=== PATIENT | male | born 1935 | race Caucasian/White ===

== ENCOUNTER → 2023-06-30 13:43 | Outpatient (REF) | payer MEDICARE, SELFPAY | LOC: RAD 13:43 | PROVIDERS: ATTENDING PHYSICIAN Internal Medicine Hematology & Oncology; FAMILY PHYSICIAN Family Medicine | DX: I82.409 Acute embolism and thrombosis of unspecified deep veins of unspecified lower extremity (principal); R22.41 Localized swelling, mass and lump, right lower limb | CPT/HCPCS: 93970 ==

== ENCOUNTER 2023-07-10 08:07 | Inpatient (IN) | payer MEDICARE, SELFPAY ==
[2023-07-08] VITALS (8 sets, daily range): BP systolic 114–187; BP diastolic 59–88; BMI 26.6; BMI 25.9
[2023-07-08 17:28] LABS: % Basophils 0.9 % (0-2); % Eosinophils 16.8 % (0-6); % Immature Granulocytes 0.7 % (0-0.5); % Lymphocytes 11.8 % (20.5-51.1); % Monocytes 13.1 % (1.7-9.3); % Neutrophils 56.7 % (42.2-75.2); Absolute Basophils 0.1 10^3/uL (0-0.2); Absolute Eosinophils 1.5 10^3/uL (0-0.7); Absolute Immature Granulocytes 0.1 10^3/uL (0-0.05); Absolute Monocytes 1.1 10^3/uL (0.1-0.6); Hematocrit 24.6 % (39.0-52.0); Hemoglobin 8.3 g/dL (13.0-18.0); Mean Corp Hgb Conc. 33.7 g/dL (33.0-37.0); Mean Corpuscular Hgb 30.2 pg (27.0-31.0); Mean Corpuscular Volume 89.5 fL (80.0-94.0); Mean Platelet Volume 9.6 fL (7.4-10.4); Nucleated Red Blood Cells % 0 % (-); Platelet Count 412 10^3/uL (130-400); Red Blood Cell Count 2.75 10^6/uL (4.70-6.10); Red Cell Dist. Width 19.4 % (11.5-14.5); White Blood Cell Count 8.7 10^3/uL (4.8-10.8)
[2023-07-08 17:42] LABS: ALT (SGPT) < 10 U/L (0-50); AST (SGOT) 18 U/L (17-59); Alkaline Phosphatase 151 U/L (38-126); Blood Urea Nitrogen 21 mg/dl (9-20); Calcium 8.7 mg/dl (8.4-10.2); Carbon Dioxide 20 mmol/L (22-30); Chloride 107 mmol/L (98-107); Glucose 109 mg/dl (70-99); Potassium 4.4 mmol/L (3.5-5.1); Sodium 135 mmol/L (135-145); Total Bilirubin 0.5 mg/dl (0.2-1.3); Total Protein 5.3 g/dl (6.3-8.2); eGFR 48.95
[2023-07-08 17:45] LABS: Erythrocyte Sed Rate 27 mm/hour (0-20)
[2023-07-08 17:52] LABS: NT-proBNP 5330 pg/ml
--- NOTE | 2023-07-08 18:31 | ED.GENMED ---
History of Present Illness
General
Chief Complaint: Swelling
Source: patient
Time Seen by Provider: 07/08/23 18:21
Travel History
Have you had any contact with someone who has COVID-19?: No
Comment: n/a
Do you have any symptoms of coronavirus? Fever > 100 degrees, chills, cough, shortness of breath, sore throat, loss of taste or smell, muscle aches, or headache?: No
Symptoms:: n/a
History of Present Illness
History of Present Illness:
87-year-old male with past medical history of atrial fibrillation, CAD, hypertension, chronic kidney disease, recent diagnosis of a GIST tumor currently started chemotherapy 6 weeks ago, this was stopped 1 week ago due to lower extremity edema,
presenting to the [facility] stating the swelling has only gotten worse and is gotten progressively more short of breath with intermittent orthopnea. Patient notes a mild cough and states that he normally has chronic mucus/chest congestion which does
not seem much worse than normal. Patient denies any fevers, chills, rigors or any other concerns. Patient notes that he had a ultrasound done of the bilateral lower extremities as an outpatient last week which was negative for DVT. He currently
does not take any diuretics
Past History
Past History
ED Past Medical History: Arrthythmia, CAD and HTN
ED Past Surgical History: Cardiac
Social History
Tobacco: Non-smoker
Alcohol: Occasional
Drug: None
Personal:
Living: with family
Employment: Retired
Family History
Family History: Other
Review of Systems
Review of Systems
All Other Systems: ROS reviewed and negative except as documented in HPI and ROS
Phy Exam
Physical Exam
Physical Exam:
GENERAL: Alert , in no apparent distress
EYE: conjunctiva clear
NECK: Supple, no significant adenopathy.
ENT: o/p clr, mmm.
CARDIAC: Regular rate and rhythm, systolic murmur at the left sternal border
LUNGS: Clear breath sounds bilaterally, no acute respiratory distress, no wheezes/rales/rhonchi
NEUROLOGICAL: Alert and oriented
SKIN: Warm and dry, skin intact.
MUSCULOSKELETAL: Bilateral lower extremity edema with the right leg being worse than the left. 2+ pitting, easily palpable pedal and tibial pulses bilateral
PSYCH: Normal and appropriate interaction.
Scores
Heart Failure Risk
Heart Failure Risk Score: Yes
History of Stroke or TIA: No
History of intubation for respiratory distress: No
Heart rate on ED arrival >/= 110: No
SaO2 <90% on arrival on room air: No
HR >/=110 during 3min walk test (or too ill to perform test): Yes
ECG has acute ischemic changes: No
Urea >/=12mmol/L (BUN 33.6mg/dL): No
Serum CO2>/=35mmol/L: No
Troponin I or T elevated to UT Level (0.4mg/dL): No
NT-proBNP >/=5,000ng/L (5,000pg/ml): Yes
HF Risk Score: 3
Admission Status: HIGH RISK 15.9% Consider SNF treatment or admission to hospital
Heart Score for Chest Pain Patients
STEMI patient?: Not applicable
Withdrawal Assessment of Alcohol
Withdrawal Assessment Completed?: Not applicable
Course
Orders/Labs/Results
Orders:
Orders
07/08/23 17:16
Complete Blood Count/With Diff Urgent
Comprehensive Metabolic Panel Urgent
ESR [Erythrocyte Sed Rate] Urgent
NT-proBNP Urgent
07/08/23 18:29
Furosemide [Lasix] 40 mg IV ONCE ONE
07/08/23 18:30
CR Chest - 2 Views Urgent
Comment:
Reason For Exam: SOB, edema
07/08/23 19:14
CR Elbow - Left Min 2 View Routine
Comment:
Reason For Exam: fall with elbow pain
Ribs, Left 3 View W/PA Chest CR [CR Ribs-left 3 Vw W/pa Chest] Routine
Comment:
Reason For Exam: recent fall with L ribcage pain
07/08/23 19:15
Admit/Transfer Patient As Directed
Co-Sign Provider:
Level of Care: Observation services
Assign to:: Telemetry
Physician / Group: hospitalist
Diagnosis: CHF exacerbation
Reason for Telemetry: Subacute Heart Failure
Date to Stop Telemetry: 07/10/23
Time to Stop Telemetry: 11:00
07/08/23 19:18
Code Status As Directed
Resuscitation Status: Full Code
07/10/23 11:00
DC Protocol for Telemetry ONCE
Abnormal Lab Results
07/08/23
17:16
RBC 2.75 L 10^6/uL
(4.70-6.10)
Hgb 8.3 L g/dL
(13.0-18.0)
Hct 24.6 L %
(39.0-52.0)
RDW 19.4 H %
(11.5-14.5)
Plt Count 412 H 10^3/uL
(130-400)
Abs Immat Gran (auto) 0.1 H 10^3/uL
(0-0.05)
Absolute Lymphs (auto) 1.0 L 10^3/uL
(1.2-3.4)
Absolute Monos (auto) 1.1 H 10^3/uL
(0.1-0.6)
Absolute Eos (auto) 1.5 H 10^3/uL
(0-0.7)
Immature Gran % 0.7 H %
(0-0.5)
Lymphocytes % 11.8 L %
(20.5-51.1)
Monocytes % 13.1 H %
(1.7-9.3)
Eosinophils % 16.8 H %
(0-6)
ESR 27 H mm/hour
(0-20)
Carbon Dioxide 20 L mmol/L
(22-30)
BUN 21 H mg/dl
(9-20)
Creatinine 1.4 H mg/dL
(0.7-1.3)
Glucose 109 H mg/dl
(70-99)
Alkaline Phosphatase 151 H U/L
(38-126)
Total Protein 5.3 L g/dl
(6.3-8.2)
Albumin 3.0 L g/dl
(3.5-5.0)
07/08/23 17:16
07/08/23 17:16
Vital Signs
Initial and Last Documented VS:
Initial Vital Signs
Temp Pulse Resp BP Pulse Ox
98.2 F 55 20 187/88 95
07/08/23 16:36 07/08/23 16:36 07/08/23 16:36 07/08/23 16:36 07/08/23 16:36
Last Documented Vital Signs
Temp Pulse Resp BP Pulse Ox
98.2 F 84 21 152/79 98
07/08/23 17:03 07/08/23 19:00 07/08/23 19:00 07/08/23 19:00 07/08/23 19:00
MDM/Problems Addressed
Differential Diagnosis Includes:
87-year-old male presenting to the emergency department for worsening lower extremity edema, shortness of breath and generally feeling unwell. Labs have been initiated from triage which show a chronic anemia, mild chronic kidney disease but a
significantly elevated BNP at greater than 5000. Based off presentation I am concerned for possible new onset CHF. Will order chest x-ray as well as Lasix for diuresis. Given persistent nature of symptoms as well as being on no diuretics at home
I do feel that is reasonable to initiate IV diuresis with plan for inpatient consultation and treatment. Patient is in agreement with this plan.
Chronic conditions affecting care: Kidney disease
Acute Exacerbation and/or Progression of Chronic Illness: Kidney disease
*Radiology
Radiology exam reviewed: radiology read reviewed
*Pulse Oximetry
Patient hypoxic: no
*Spent Grain Dryer Interpretation
Rate: normal
Rhythm: sinus
*Critical Care Note
Total Time (30-74mins, 75-104mins- exclusive of procedures): Not Applicable
Data Reviewed
Review of Other/Old Records Reveals: Labs and Radiology Studies
Patient Management
Discussion with other providers: Hospitalist
Escalation/DeEscalation of care consider admission/obs:
Hospitalist is aware and accepts patient for continued evaluation and treatment.
ED Attending Note
-
Portions of this chart may have been created with voice recognition software.� Occasional wrong word or��sound alike� substitutions may have occurred due to the inherent limitations of voice recognition software.
Discharge Plan
Departure
Patient Disposition: Admit
Date of Disposition: 07/08/23
Time of Disposition: 18:31
Presentation/result/management discussed w/ accepting MD/DO: Hospitalist
Discharge Problem:
Edema, Anemia, Shortness of breath, CKD (chronic kidney disease)
Prescriptions:
No Action
Fiber Therapy (m-cellulose) 500 MG tablet
500 mg PO QPM
cholecalciferol (vitamin D3) 1,000 UNITS tablet
1,000 units PO QPM
docusate sodium 100 MG capsule
100 mg PO DAILY
cyanocobalamin (vitamin B-12) [Vitamin B-12] 500 mcg Tablet
500 mcg PO DAILY
amlodipine [Norvasc] 5 mg Tablet
5 mg PO DAILY
Hold Instructions: Resume on 05/13/23. Check with your primary care provider regarding if and when you should resume this medication.
atorvastatin 20 mg tablet
20 mg PO QPM
acetaminophen 500 mg Tablet
1,000 mg PO DAILY
imatinib 400 mg tablet
400 mg PO QPM
pantoprazole 40 MG tablet,delayed release (DR/EC)
40 mg PO BID
Referrals:
Roland Scott MD [Family Provider] -
Interventions
Interventions:
*Risk Screen - Suicide Last Done: 07/08/23 17:03
*General Assessment Last Done: 07/08/23 17:03
*Neglect/Abuse Screening Last Done: 07/08/23 17:58
ED- Fall Risk Assessment Last Done: 07/08/23 17:58
*ED COVID-19 Vaccine History Last Done: 07/08/23 17:58
ED- Cardiac Assessment Last Done: 07/08/23 17:58
ED- Pulmonary Assessment Last Done: 07/08/23 17:58
ED-Skin Assessment Last Done: 07/08/23 17:58
[2023-07-08] MEDS: LASIX 40 MG IV (18:53)
--- NOTE | 2023-07-08 19:24 | HPS.HSE ---
Family Physician
-
Family Physician: Roland Scott MD
Chief Complaint
-
dyspnea, LE swelling
History of Present Illness
87yo M with PMHx of GIST tumor on chemo, Hx of DVT, HTN, CKD stage 3a, Afib, sinus bonita came with SOB and worsening LE edema and dyspnea. He was started on imantinib appr 6 weeks ago, and due to progressive swelling (mostly pronounced in AM) -
imantinib stopped 1 week ago. Patient followed by [facility] crdiology. He also admitts that he uses fair amount of salt in his meals
Medical History
Past Medical History
Past Medical History: Reports Other
Additional Past Medical History:
see HPI
Past Surgical History: Reports None
Social History
Tobacco: Non-smoker
Alcohol: Occasional
Drug: None
Family History
Family History: Not pertinent
Allergies / Home Medications
Allergies reflects when Allergies were last updated in [facility].
Home Medications with original date entered in [facility]
Allergy/Medication List:
Allergies
Allergy/AdvReac Type Severity Reaction Status Date / Time
No Known Allergies Allergy Verified 07/08/23 17:02
Home Medications
methylcellulose (laxative) 500 mg tablet (Fiber Therapy (methylcellulose)) 500 mg PO QPM Constipation 05/24/18
cholecalciferol (vitamin D3) 25 mcg (1,000 unit) tablet 1,000 units PO QPM Supplement 02/12/19
docusate sodium 100 mg capsule 100 mg PO DAILY Constipation 01/15/21
cyanocobalamin (vitamin B-12) 500 mcg tablet (Vitamin B-12) 500 mcg PO DAILY Supplement 04/14/23
amlodipine 5 mg tablet (Norvasc) 5 mg PO DAILY 05/06/23
acetaminophen 500 mg tablet 1,000 mg PO DAILY 07/08/23
atorvastatin 20 mg tablet 20 mg PO QPM 07/08/23
imatinib 400 mg tablet 400 mg PO QPM 07/08/23
pantoprazole 40 mg tablet,delayed release 40 mg PO BID 07/08/23
Review of Systems
-
A 12 point ROS was completed and negative except as noted: Yes
Respiratory: Reports See HPI
Physical Exam
Vital Signs
Vital Signs
Temp Pulse Resp BP Pulse Ox
98.2 F 84 21 152/79 98
07/08/23 17:03 07/08/23 19:00 07/08/23 19:00 07/08/23 19:00 07/08/23 19:00
Physical Exam
General: Well Developed, Well Nourished and No Apparent Distress
HEENT: NormoCephalic and Anicteric
Respiratory: Clear; No Wheezes, Rales or Crackles
Cardiac: S1/S2 and Regular Rhythm
GI: Soft, Non Tender and Non Distended
Musculoskeletal: No Clubbing, No Cyanosis, Edema, Left Lower Extremity and Edema, Right Lower Extremity
Skin: Warm; No Dry or Rash
Neuro: Awake, Alert, Oriented and AO x 3
Hematologic/Lymphatic: No Lymphadenopathy
Psych: Calm
Laboratory Results
-
07/08/23 17:16
07/08/23 17:16
Laboratory Results
Total Bilirubin 0.5 mg/dl (0.2-1.3) 07/08/23 17:16
AST 18 U/L (17-59) 07/08/23 17:16
ALT < 10 U/L (0-50) 07/08/23 17:16
Alkaline Phosphatase 151 U/L (38-126) H 07/08/23 17:16
Data Reviewed
-
Diagnostic Radiology: Report Reviewed by me
Impression/Plan
-
#Dyspnea and LE swelling 2/2 acute CHF, uncpesified
Echo, telemetry, Lasix, follow electrolytes, daily weights and I&O
low sodium diet
XR chest with minimal b/l pleural effusion
Hold Amlodipine
No DVT on US from 06/30/23
#Elevated Alk.phos
RUQ US
most likely 2/2 chemo vs recent fall
#Chronic anemia
#Thombocytosis
reactive 2/2 chemo
follow CBC
possibly 2/2
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
#Hx of DVT
#unspecified Afib not on AC
cont home meds
Hem/Onc consult
#recent mechanical fall with L elbow and L rib-cage pain
XR L elbow and ribs
#Pain in throat
no signs of thrush
Topical anesthetic
DVT ppx SCDs
Full code
This encounter required high level of complexity for medical decision making
[2023-07-08] MEDS: HEPARIN 5000 UNITS SC (22:33)
[2023-07-08] MEDS: PROTONIX 40 MG PO (22:33)
[2023-07-09] VITALS (7 sets, daily range): BP systolic 110–168; BP diastolic 53–93; BMI 25.6
--- NOTE | 2023-07-09 08:17 | CON.CAR ---
Consultation
Consultation Request
Date/Time Consultation Requested: 07/09/23
Date/Time Consultation Performed: 07/09/23
Requesting Provider: Dr. Mcintosh
Performing Provider: Dr. Mendez
Reason for Consultation: SOB/edema
Medical History
-
Chief Complaint: SOB/edema
History of Present Illness:
Aguila Flynn is well known to me from the office since 2019. 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
diagnosed back in February following workup for progressive shortness of breath, weight loss and progressive anemia. At the time of her office visit in February he had had a recent 2D echocardiogram demonstrating normal biventricular size and
systolic function with normal diastolic function and no hemodynamically significant valve pathology or evidence to suggest pulmonary hypertension. His chest x-ray was without infiltrate or pleural effusions but with subpleural fibrosis and proBNP
was elevated however at that time he did not examine any acute heart failure with no lower extremity edema. He has no history of heart failure and has not historically required diuretics. Time of this visit he was referred urgently to GI,
pulmonary and his oncologist due to worsening anemia. His amiodarone which he had been on for paroxysmal atrial fibrillation was discontinued; his lisinopril was also discontinued. At this visit he also was told to stop Eliquis and was placed on
aspirin 81 mg daily. He was also discontinued a CT of the chest was ordered. The chest CT done March 18, 2023 found a large area of abnormal heterogeneous attenuation in the left upper quadrant felt to be an intra-abdominal mass. There was also
mild scarring/fibrosis of bilateral lungs in a nonspecific pattern associated with bronchiectasis changes and small areas of bronchiolitis in the upper lobes. There is also known moderate calcific atherosclerotic changes in the aorta with mild
ectasia of the ascending aorta measuring 4.1 mm and coronary atherosclerosis with evidence of prior coronary stent. He presented as an outpatient April 19, 2023 for EGD endoscopy which found a normal esophagus as well as a small gastric erosion
without bleeding it was biopsied as well as a large 50 mm submucosal mass with centralized ulceration which was also biopsied. He was readmitted April 24 with progressive weakness found to have symptomatic anemia with hemoglobin 5.9 status post
4 units packed red blood cells with hemoglobin on time of discharge 7.8 g/dL. He had another EGD/EUS 04/26/2023. During his hospitalization he also had an abdominal MRI which showed multiple liver lesions consistent with metastatic disease and a
small amount of ascites. He underwent IR guided liver biopsy with pathology positive for metastatic GIST. He was again readmitted May 06 with symptomatic anemia and hemoglobin again of 5.8 g/dL and hypotensive with melena requiring 3 units
transfusion. During this hospitalization he was again followed by GI as well as medical oncology. Following this hospitalization he was started on Gleevec 400 mg daily May 19, 2023. Patient states approximately 2 weeks after starting this
therapy he started to develop diffuse swelling. He noted periorbital, facial particular around his bilateral jaw edema. He also noted edema in his upper extremities particularly near his elbows and progressive edema in his lower extremities. He
was seen by Dr. Lane 06/30/2023 and told to hold Gleevec for 2 weeks with plan to eventually resume at 50% dose reduction. He had a lower extremity duplex 06/30/2023 which was negative for DVT. He was seen by Dr. Lane. He has not resumed therapy
but called our office yesterday after being referred back from oncology due to persistent edema and dyspnea on exertion. He received IV Lasix yesterday in the ED and this morning with significantly improved lower extremity edema. He denies dyspnea
at rest or orthopnea. He denies palpitations, chest pain or pressure. He denies abdominal pain or distention. He denies bright red blood per rectum or melena. He denies focal weakness, near-syncope or syncope.
.
Prior to these above medical issues, I was following Aguila for history of coronary artery disease without prior myocardial infarct found by abnormal stress testing. He underwent left heart catheterization with Dr. Aguayo January 15, 2021 status
post successful placement of a 4.0 x 18 mm Xience stent to high-grade proximal LAD stenosis. During cardiac catheterization he had asymptomatic paroxysmal atrial fibrillation which did not require cardioversion and was ultimately discharged on both
Plavix and Eliquis. A subsequent 4-day surveillance monitor in August 2021 showed 1 episode of atrial fibrillation for 1.7 minutes with a burden of 0.01% and rare PACs with no ventricular ectopy. He completed 1 year of dual therapy with Plavix and
Eliquis; Plavix was discontinued January 15, 2022. In December 2022 he again reported episodes of chest pressure found to be again in rapid atrial fibrillation. At the time of this appointment he was started on amiodarone and arranged further
cardiac testing including a stress test and another surveillance monitor . monitor technician showed predominantly sinus rhythm with an A-fib burden of 2.2%. As noted above both amiodarone and Eliquis were discontinued late last year during workup of
progressive anemia and worsening shortness of breath. He also suffers from chronic renal insufficiency. Prior to this most recent diagnosis he had been followed by Dr. Glover, hematology for for macrocytic anemia. He has now transitioned his care
to [facility].
Past medical history: Coronary artery disease status post LAD stent January 15, 2021 without history of myocardial infarction [residual 50% proximal OM 3 stenosis, mid 30% RCA stenosis. ], History of hypertension, history of orthostatic
hypotension. History of paroxysmal atrial fibrillation, history of sinus bradycardia, dyslipidemia, renal insufficiency, macrocytic anemia, osteoarthritis
Past surgical history:
Left total knee replacement, 2018, tonsil and adenectomy as a child, total right hip replacement February 2019, right L5-S1 ILESI 2019, L4-5 ILESI 2019, right L4-L5 I LESI 2019, EGD/EUS, left heart catheterization
Past Medical History
Past Medical History: Other (See above in HPI)
Past Surgical History: Other (See above in HPI)
Social History
Tobacco: Former Smoker (He smoked a pipe for 3 years but never smoked cigarettes. Did not have significant passive smoke exposure as a youth)
Alcohol: None
Drug: None
Personal:
Living: With Family
Employment: Retired
Family History
Family History: Reviewed & Not Pertinent
Allergies / Home Medications
Allergy/AdvReac Type Severity Reaction Status Date / Time
No Known Allergies Allergy Verified 07/08/23 17:02
Medication Instructions Recorded Confirmed Type
methylcellulose (laxative) 500 mg 500 mg PO QPM Constipation 05/24/18 07/08/23 History
tablet (Fiber Therapy
(methylcellulose))
cholecalciferol (vitamin D3) 25 1,000 units PO QPM Supplement 02/12/19 07/08/23 History
mcg (1,000 unit) tablet
docusate sodium 100 mg capsule 100 mg PO DAILY Constipation 01/15/21 07/08/23 History
cyanocobalamin (vitamin B-12) 500 500 mcg PO DAILY Supplement 04/14/23 07/08/23 History
mcg tablet (Vitamin B-12)
amlodipine 5 mg tablet (Norvasc) 5 mg PO DAILY 05/06/23 07/08/23 History
acetaminophen 500 mg tablet 1,000 mg PO DAILY 07/08/23 07/08/23 History
atorvastatin 20 mg tablet 20 mg PO QPM 07/08/23 07/08/23 History
imatinib 400 mg tablet 400 mg PO QPM 07/08/23 07/08/23 History
pantoprazole 40 mg tablet,delayed 40 mg PO BID 07/08/23 07/08/23 History
release
Review of Systems
-
History Source: Patient
All other systems: Negative unless noted
Constitutional: Weight Gain and Fatigue
EENT: No Symptoms
Respiratory: Trouble Breathing
Cardiac: No Symptoms
Abdomen/GI: No Symptoms
: No Symptoms
Musculoskeletal: Edema
Neurological: Weakness
Hematologic/Lymphatic: Bruising
Physical Exam
Vital Signs
Temp Pulse Resp BP Pulse Ox
97.9 F 74 16 151/84 93
07/09/23 07:47 07/09/23 07:47 07/09/23 07:47 07/09/23 07:47 07/09/23 07:47
Lab Results
Ixl-T-Ajjaaosbydu Pept 5330 pg/ml 07/08/23 17:16
-07/09/2023: Hemoglobin 7.6, WBC 8, platelets 390,000. ESR 27. 07/08/2023 hemoglobin 8.3. Hemoglobin was 8.7 on 05/09/2023
-07/09/2023: Sodium 135, potassium 4.5, BUN/creatinine 23/1.5. Glucose 71. Magnesium 1.8. LFTs within normal limits.
-troponin less than 0.012.
-Twelve-lead EKG sinus rhythm with PACs otherwise normal
-2D echocardiogram 07/09/2023 with normal LV size, wall thickness and systolic function and no regional wall motion abnormalities. EF 60 to 65% with normal diastolic function. Normal RV size and systolic function with estimated pulmonary artery
pressure 27 mmHg. No significant valve pathology. IVC normal in size.
-Lower extremity duplex 06/30/2023 negative for DVT
-Chest x-ray 07/08/2023 with small left pleural effusion with atelectasis and Trace right pleural effusion slightly progressed.
-VQ scan 07/09/2023 very low probability for PE
-Abdominal ultrasound again notes multiple hepatic masses with known hepatic metastasis.
Physical Exam
General: Other (Seen on stretcher down in radiology following abdominal ultrasound. Lying supine on gurney and appears comfortable on room air. No conversational dyspnea at rest.)
HEENT: Normocephalic, Anicteric and Moist Mucous Membranes
Respiratory: Other (Bronchovesicular breath sounds with decreased bases on the right but without wheezes rhonchi's or crackles.)
Cardiac: S1/S2, Regular Rhythm and Peripheral Edema (Pitting edema noted bilateral upper extremities around the elbows. +2-3 pitting edema bilateral lower extremities.); Negative Murmur or Rub
Breast: Deferred by me
GI: Soft, Non Tender, Non Distended and Normal Bowel Sounds
Rectal: Deferred by Provider
Skin: Warm
Neuro: AO x 3
Psych: Calm
Impression / Plan
-
Citizenship Teacher: Dr. Mendez
Impression:
Diffuse edema of the upper and lower extremities as well as periorbital/facial and progressive dyspnea on exertion
-Gleevac associated fluid retention versus heart failure with preserved ejection fraction
-per patient started 2 weeks after initiation of Gleevac
-Facial/periorbital edema has improved following discontinuation of Gleevec 1 week ago
-Elevated proBNP 5330; troponin less than 0.012
-2D echocardiogram 07/09/2023 with normal biventricular size and systolic function, no significant valve abnormalities, no evidence of pulmonary hypertension, normal diastolic function and no pericardial effusion.
-Lower extremity Doppler - 06/29/2023 for DVT
-VQ scan 07/09/2023 very low probability of PE
Chronic anemia requiring transfusions
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
Chronic renal insufficiency
History of paroxysmal atrial fibrillation in sinus rhythm, currently not anticoagulated due to bleeding risk
History of known coronary artery disease status post LAD stent January 15, 2021; no history of myocardial infarct
Plan:
Diffuse fluid retention with workup ongoing. Possible Gleevac associated fluid retention versus heart failure with preserved ejection fraction.
-Multidisciplinary case discussion with oncology and medicine
-He is responding well to IV Lasix
-Monitor I's and O's and renal function closely. Monitor electrolytes
-Oxygen saturation stable at rest, 98% on room air
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
-Gleevec from 05/19/23-06/30/23
-Oncology consult
Anemia requiring transfusion
-Consider transfusion for hemoglobin greater than 8
Chronic kidney disease�follow renal function closely with diuresis
History of paroxysmal atrial fibrillation currently in sinus rhythm
-Monitor on telemetry
-No anticoagulation or aspirin given transfusion requiring anemia
History of coronary artery disease status post LAD stent 2020
-Stable without symptoms of angina. Undetectable cardiac troponin.
-EKG stable
Plan discussed with over the phone
Case/plan discussed with oncology and medicine
Data Reviewed
-
EKG: Report Reviewed by me
Radiology: Report Reviewed by me
Medical Tests (Nuc Med, Echo etc): Report Reviewed by me
Labs: Labs Reviewed by me
Old Records: Reviewed
Total Time Spent with Patient (in minutes): 60
[2023-07-09] MEDS: PROTONIX 40 MG PO ×2 (08:22→20:57)
[2023-07-09] MEDS: HEPARIN 5000 UNITS SC (08:22)
[2023-07-09] MEDS: TYLENOL 1000 MG PO (08:22)
[2023-07-09] MEDS: COLACE 100 MG PO (08:22)
[2023-07-09] MEDS: VITAMIN B-12 500 MCG PO (08:22)
[2023-07-09] MEDS: LASIX 40 MG IV ×2 (08:23→15:06)
[2023-07-09 08:55] LABS: % Eosinophils 22.7 % (0-6); % Immature Granulocytes 0.5 % (0-0.5); % Lymphocytes 14.5 % (20.5-51.1); % Neutrophils 46.3 % (42.2-75.2); Absolute Basophils 0.1 10^3/uL (0-0.2); Absolute Eosinophils 1.8 10^3/uL (0-0.7); Absolute Lymphocytes 1.2 10^3/uL (1.2-3.4); Absolute Monocytes 1.2 10^3/uL (0.1-0.6); Absolute Neutrophils 3.7 10^3/uL (1.4-6.5); Hematocrit 22.8 % (39.0-52.0); Hemoglobin 7.6 g/dL (13.0-18.0); Mean Corp Hgb Conc. 33.3 g/dL (33.0-37.0); Mean Corpuscular Hgb 30.6 pg (27.0-31.0); Mean Corpuscular Volume 91.9 fL (80.0-94.0); Mean Platelet Volume 10.1 fL (7.4-10.4); Nucleated Red Blood Cells % 0 % (-); Platelet Count 390 10^3/uL (130-400); Red Blood Cell Count 2.48 10^6/uL (4.70-6.10); Red Cell Dist. Width 19.2 % (11.5-14.5)
[2023-07-09 09:28] LABS: ALT (SGPT) < 10 U/L (0-50); AST (SGOT) 18 U/L (17-59); Albumin 2.7 g/dl (3.5-5.0); Alkaline Phosphatase 128 U/L (38-126); Blood Urea Nitrogen 23 mg/dl (9-20); Calcium 8.5 mg/dl (8.4-10.2); Carbon Dioxide 25 mmol/L (22-30); Chloride 105 mmol/L (98-107); Estimated Creatinine Clearance 39 ml/min; Glucose 71 mg/dl (70-99); Magnesium 1.8 mg/dl (1.6-2.3); Potassium 4.5 mmol/L (3.5-5.1); Sodium 135 mmol/L (135-145); Total Bilirubin 0.7 mg/dl (0.2-1.3); Total Protein 4.9 g/dl (6.3-8.2); eGFR 45.06
[2023-07-09 12:12] LABS: Troponin I < 0.012 ng/ml
[2023-07-09 13:40] LABS: Iron 49 ug/dl (49-181)
[2023-07-09 13:50] LABS: Percent Saturation 29 % (20-50); Total Iron Binding Capacity 165 ug/dl (261-462)
--- NOTE | 2023-07-09 14:22 | W.PN.HOSP.TC ---
Today's Communication/Plan
-
Continue diuresis
Trend BMP
Trend CBC
Check anemia panel
Assessment / Plan
Assessment / Plan
#Dyspnea and LE swelling 2/2 adverse reaction from chemotherapy
Echo with ejection fraction 60-55%. Normal diastolic function. Normal right ventricular size and function. No significant valvular pathology. PASP 27 mmHg. Mildly dilated aortic root and ascending aorta.
VQ scan with low probability of PE
Lower extremity venous Doppler on 06/29 negative
XR chest with minimal b/l pleural effusion
Hold Amlodipine
Responding well to diuresis
Plan for repeat dose later in the evening
Discussed with cardiology oncology
#CKD3b
Cr of 1.5
Cr was 1.4 in 05/18
Monitor closely with diuresis.
#Elevated Alk.phos
RUQ US
most likely 2/2 chemo vs recent fall
#Chronic anemia
#Thombocytosis
reactive 2/2 chemo
follow CBC
Hemoglobin 7.6.
Check anemia panel and iron stores
possibly 2/2
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
#Hx of DVT
#unspecified Afib not on AC
cont home meds
Hem/Onc consult
#recent mechanical fall with L elbow and L rib-cage pain
XR L elbow and ribs
#Pain in throat
no signs of thrush
Topical anesthetic
DVT ppx start lovenox
Full code
Discussed case extensively with cardiology and oncology.
Anticipated Discharge: > 48 hours
Subjective/Interval History
-
Date of Service: July 09, 2023
States the swelling has started to reduce
Objective Data
-
Labs:
Laboratory Results
07/09/23
06:14
WBC 8.0
Hgb 7.6 L
Hct 22.8 L
Plt Count 390
Sodium 135
Potassium 4.5
Chloride 105
Carbon Dioxide 25
BUN 23 H
Creatinine 1.5 H
Glucose 71
Calcium 8.5
Total Bilirubin 0.7
AST 18
ALT < 10
Alkaline Phosphatase 128 H
Vital Signs:
Vital Signs
Temp Pulse Resp BP Pulse Ox
97.9 F 81 18 110/53 98
07/09/23 07:47 07/09/23 11:18 07/09/23 11:18 07/09/23 11:18 07/09/23 11:18
I&O
07/08/23 07/09/23 07/10/23
06:59 06:59 06:59
Output Total 2024
Balance -2024 /
Physical Exam
-
General: Well Developed and No Apparent Distress
HEENT: Normocephalic, Atraumatic and Moist Mucous Membranes
Respiratory: Clear to Auscultation
Cardiac: Regular Rhythm and S1/S2; Negative Murmur, Rub or Gallop
GI: Soft, Nontender, Nondistended and Normal Bowel Sounds; Negative Organomegaly
Rectal: Deferred by Provider
Musculoskeletal: No Clubbing, No Cyanosis, Edema, Right Lower Extrem and Edema, Left Lower Extrem
Skin: Warm; Negative Rash
Neuro: Awake, No Motor Deficits and Nonfocal/Grossly Intact
Psych: Calm
Data Reviewed
-
Total Time Spent with Patient (in minutes): 55
--- NOTE | 2023-07-09 14:57 | CM ---
Alert awake oriented patient who lives with his Esther they lives in a split story home with 0 step to enter and 12 steps bed and bathroom. He is independent in driving and in all activities of daily living.He uses a cane. He was offered VN
he is unsure.[facility] letter given copy. He said he has never had any copy.He declined to sign letter.
No VN/SNF history
Pharmacy [facility]
PCP DR Scott
PLAN Home declined VN
[2023-07-09 14:58] LABS: Folate 4.6 ng/ml (2.76-20); Vitamin B12 981 pg/ml (239-931)
--- NOTE | 2023-07-09 16:35 | PTCARENOTE ---
Assumed care of patient at 16:00 from previous RN. No changes noted to previous assessment. VSS. Pox: 96% RA. Plan of care ongoing. Call farrell within reach.
[2023-07-09] MEDS: LOVENOX 30 MG SC (17:11)
--- NOTE | 2023-07-09 20:00 | PTCARENOTE ---
Pt for lower extremity ultrasound- ultrasound department notified. States will do in AM.
[2023-07-09] MEDS: MIRALAX 17 GRAMS PO (21:45)
--- NOTE | 2023-07-09 23:05 | CON.ONC ---
Impression
Impression
Fluid overload exacerbated by Gleevac
CKD stage 3B
Plan
Plan
resutls of V/Q scan noted no perfusion defects worrisome for VTE; he notes marked improvement in ambulatory status with diuresis-- followup with Dr Lane @ d/c to consider TKI therapies
Patient History
History of Present Illness
Patient was evaluated earlier in the day; 87yo WM currently off Gleevac therapy for progression of fluid retention noted after 4 weeks though noted to have mild peripheral edema by Dr Lane prior to initiation of therapy likely secondary to CKD. He
was referred to cardiology fter most recent visit to Oncology for edema that porgressed to periorbital as well as BLE>>BUE. He noted marked ADAME that prompted ER visit.
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
liver. 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
Past-Medical/Surgical History
HFnEF; CKD stage 3B;
Patient Medication
Medication Instructions Recorded Confirmed Last Taken Type
methylcellulose (laxative) 500 mg 500 mg PO QPM Constipation 05/24/18 07/08/23 07/07/23 History
tablet (Fiber Therapy
(methylcellulose))
cholecalciferol (vitamin D3) 25 1,000 units PO QPM Supplement 02/12/19 07/08/23 07/07/23 History
mcg (1,000 unit) tablet
docusate sodium 100 mg capsule 100 mg PO DAILY Constipation 01/15/21 07/08/23 07/08/23 History
cyanocobalamin (vitamin B-12) 500 500 mcg PO DAILY Supplement 04/14/23 07/08/23 07/08/23 History
mcg tablet (Vitamin B-12)
amlodipine 5 mg tablet (Norvasc) 5 mg PO DAILY Blood Pressure 05/06/23 07/08/23 07/08/23 History
acetaminophen 500 mg tablet 1,000 mg PO DAILY Pain 07/08/23 07/08/23 07/08/23 History
atorvastatin 20 mg tablet 20 mg PO QPM High Cholesterol 07/08/23 07/08/23 07/07/23 History
imatinib 400 mg tablet 400 mg PO QPM GIST tumor 07/08/23 07/08/23 1 Week Ago History
~07/01/23
pantoprazole 40 mg tablet,delayed 40 mg PO BID Gastrointestinal Issue 07/08/23 07/08/23 07/08/23 History
release
Active Medications
Generic Name Dose Route Start Last Admin
Trade Name Freq PRN Reason Stop Dose Admin
Acetaminophen 1,000 mg 07/09/23 08:00 07/09/23 08:22
Acetaminophen 500 Mg Tablet PO 08/06/23 07:59 1,000 mg
DAILY RUDDY Administration
Atorvastatin Calcium 20 mg 07/09/23 18:00 07/09/23 17:16
Atorvastatin (Lipitor) 20 Mg Tablet PO 08/06/23 17:59 Not Given
QPM RUDDY
Cyanocobalamin 500 mcg 07/09/23 08:00 07/09/23 08:22
Cyanocobalamin 1,000 Mcg Tablet PO 08/06/23 07:59 500 mcg
DAILY RUDDY Administration
Docusate Sodium 100 mg 07/09/23 08:00 07/09/23 08:22
Docusate Sodium 100 Mg Capsule PO 08/06/23 07:59 100 mg
DAILY RUDDY Administration
Enoxaparin Sodium 30 mg 07/09/23 18:00 07/09/23 17:11
Enoxaparin Sodium 30 Mg/0.3 Ml Syringe SC 08/06/23 17:59 30 mg
QPM RDUDY Administration
Furosemide 40 mg 07/09/23 08:00 07/09/23 08:23
Furosemide 40 Mg (10 Mg/Ml) 4 Ml Vial IV 08/06/23 07:59 40 mg
DAILY RUDDY Administration
Lidocaine/Diphenhydr/Alum/Mg/Simeth 5 ml 07/08/23 22:56
Magic Mouthwash 5 Ml Cup (Mag&Al/Sim/Diphenhyd/Lidocaine) PO 08/05/23 22:55
QIDPRN PRN
mouth sore
Pantoprazole Sodium 40 mg 07/08/23 21:18 07/09/23 20:57
Pantoprazole 40 Mg Delayed Release Tablet PO 08/05/23 21:17 40 mg
BID RUDDY Administration
Polyethylene Glycol 17 grams 07/09/23 21:22 07/09/23 21:45
Polyethylene Glycol Powder 17 Grams Packet PO 08/06/23 21:21 17 grams
DAILYPRN PRN Administration
constipation
Sodium Chloride 0 flush 07/08/23 22:00
Sodium Chloride 0.9% (Flush) Syringe IV 08/05/23 21:59
PER PROTOCOL RUDDY
Review of Systems
-
History Source: Patient
All Other Systems: Reviewed and Negative (other than as per HPI)
Physical Exam
-
General: No Apparent Distress
HEENT: Moist Mucous Membranes
Cardiology: Normal Sinus Rhythm
Pulmonary: Clear
GI: Soft and Normal Bowel Sounds
Extremities: Edema (knee high R>>L)
Neurology: Non Focal
Labs
Lab Results
WBC 8.0 10^3/uL (4.8-10.8) 07/09/23 06:14
RBC 2.48 10^6/uL (4.70-6.10) L 07/09/23 06:14
Hgb 7.6 g/dL (13.0-18.0) L 07/09/23 06:14
Hct 22.8 % (39.0-52.0) L 07/09/23 06:14
MCV 91.9 fL (80.0-94.0) 07/09/23 06:14
MCH 30.6 pg (27.0-31.0) 07/09/23 06:14
MCHC 33.3 g/dL (33.0-37.0) 07/09/23 06:14
RDW 19.2 % (11.5-14.5) H 07/09/23 06:14
Plt Count 390 10^3/uL (130-400) 07/09/23 06:14
MPV 10.1 fL (7.4-10.4) 07/09/23 06:14
Abs Immat Gran (auto) 0.0 10^3/uL (0-0.05) 07/09/23 06:14
Absolute Neuts (auto) 3.7 10^3/uL (1.4-6.5) 07/09/23 06:14
Absolute Lymphs (auto) 1.2 10^3/uL (1.2-3.4) 07/09/23 06:14
Absolute Monos (auto) 1.2 10^3/uL (0.1-0.6) H 07/09/23 06:14
Absolute Eos (auto) 1.8 10^3/uL (0-0.7) H 07/09/23 06:14
Absolute Basos (auto) 0.1 10^3/uL (0-0.2) 07/09/23 06:14
Immature Gran % 0.5 % (0-0.5) 07/09/23 06:14
Neutrophils % 46.3 % (42.2-75.2) 07/09/23 06:14
Lymphocytes % 14.5 % (20.5-51.1) L 07/09/23 06:14
Monocytes % 15.0 % (1.7-9.3) H 07/09/23 06:14
Eosinophils % 22.7 % (0-6) H 07/09/23 06:14
Basophils % 1.0 % (0-2) 07/09/23 06:14
Creatinine 1.5 mg/dL (0.7-1.3) H 07/09/23 06:14
Vital Signs
Vital Signs
Temp Pulse Resp BP Pulse Ox
98.5 F 78 18 138/75 99
07/09/23 19:40 07/09/23 19:53 07/09/23 19:40 07/09/23 19:53 07/09/23 19:40
[2023-07-10] VITALS (8 sets, daily range): BP systolic 98–147; BP diastolic 63–76; BMI 24.7
[2023-07-10 08:24] LABS: % Basophils 1.1 % (0-2); % Eosinophils 21.4 % (0-6); % Immature Granulocytes 0.7 % (0-0.5); % Lymphocytes 17.1 % (20.5-51.1); % Monocytes 15.3 % (1.7-9.3); % Neutrophils 44.4 % (42.2-75.2); Absolute Basophils 0.1 10^3/uL (0-0.2); Absolute Eosinophils 1.5 10^3/uL (0-0.7); Absolute Immature Granulocytes 0.1 10^3/uL (0-0.05); Absolute Lymphocytes 1.2 10^3/uL (1.2-3.4); Absolute Monocytes 1.1 10^3/uL (0.1-0.6); Absolute Neutrophils 3.2 10^3/uL (1.4-6.5); Hematocrit 22.5 % (39.0-52.0); Hemoglobin 7.5 g/dL (13.0-18.0); Mean Corp Hgb Conc. 33.3 g/dL (33.0-37.0); Mean Corpuscular Hgb 30.4 pg (27.0-31.0); Mean Corpuscular Volume 91.1 fL (80.0-94.0); Mean Platelet Volume 10.1 fL (7.4-10.4); Nucleated Red Blood Cells % 0 % (-); Platelet Count 377 10^3/uL (130-400); Red Blood Cell Count 2.47 10^6/uL (4.70-6.10); Red Cell Dist. Width 19.1 % (11.5-14.5); White Blood Cell Count 7.2 10^3/uL (4.8-10.8)
[2023-07-10 09:17] LABS: TSH Reflex To Free T4 3.45 uIU/ml (0.47-4.68)
[2023-07-10 09:30] LABS: Blood Urea Nitrogen 27 mg/dl (9-20); Calcium 8.4 mg/dl (8.4-10.2); Carbon Dioxide 24 mmol/L (22-30); Chloride 102 mmol/L (98-107); Estimated Creatinine Clearance 36 ml/min; Glucose 73 mg/dl (70-99); Potassium 4.2 mmol/L (3.5-5.1); Sodium 134 mmol/L (135-145)
[2023-07-10] MEDS: PROTONIX 40 MG PO ×2 (09:32→19:40)
[2023-07-10] MEDS: VITAMIN B-12 500 MCG PO (09:32)
[2023-07-10] MEDS: LASIX 40 MG IV (09:32)
[2023-07-10] MEDS: COLACE 100 MG PO (09:32)
[2023-07-10] MEDS: TYLENOL 1000 MG PO (09:32)
--- NOTE | 2023-07-10 11:37 | W.PN.HOSP.TC ---
Today's Communication/Plan
-
IV lasix
cards recs
Assessment / Plan
Assessment / Plan
#Dyspnea and LE swelling 2/2 adverse reaction from chemotherapy
Echo with ejection fraction 60-55%. Normal diastolic function. Normal right ventricular size and function. No significant valvular pathology. PASP 27 mmHg. Mildly dilated aortic root and ascending aorta.
VQ scan with low probability of PE
Lower extremity venous Doppler on 06/29 negative
XR chest with minimal b/l pleural effusion
Hold Amlodipine
Cont with IV lasix. Cr holding.
#CKD3b
Cr of 1.6
Cr was 1.4 in 05/18
Monitor closely with diuresis.
#Elevated Alk.phos
most likely 2/2 chemo
Improving
#Chronic anemia
#Thombocytosis
reactive 2/2 chemo
follow CBC
Hemoglobin 7.5
Appropriate Iron stores
Transfuse <7.
No luminal bleeding noted
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
#Hx of DVT
#unspecified Afib not on AC
cont home meds
Trend H/H
#recent mechanical fall with L elbow and L rib-cage pain
XR L elbow and ribs
negative for fracture
#Pain in throat
no signs of thrush
Topical anesthetic
DVT ppx start lovenox
Full code
Anticipated Discharge: 24 - 48 hours
Subjective/Interval History
-
Date of Service: July 10, 2023
states edema is improving
Objective Data
-
Labs:
Laboratory Results
07/10/23
05:59
WBC 7.2
Hgb 7.5 L
Hct 22.5 L
Plt Count 377
Sodium 134 L
Potassium 4.2
Chloride 102
Carbon Dioxide 24
BUN 27 H
Creatinine 1.6 H
Glucose 73
Calcium 8.4
Vital Signs:
Vital Signs
Temp Pulse Resp BP Pulse Ox
98.0 F 73 18 136/72 96
07/10/23 07:55 07/10/23 07:55 07/10/23 07:55 07/10/23 07:55 07/10/23 07:55
I&O
07/09/23 07/10/23 07/11/23
06:59 06:59 06:59
Intake Total 1290 / 1290
Output Total 2024 2600 / 2600
Balance -2024 / -2024 -1310 / -1310
Physical Exam
-
General: Well Developed and No Apparent Distress
HEENT: Normocephalic, Atraumatic and Moist Mucous Membranes
Respiratory: Clear to Auscultation
Cardiac: Regular Rhythm and S1/S2; Negative Murmur, Rub or Gallop
GI: Soft, Nontender, Nondistended and Normal Bowel Sounds; Negative Organomegaly
Rectal: Deferred by Provider
Musculoskeletal: No Clubbing, No Cyanosis, Edema, Right Lower Extrem (c), Edema, Left Lower Extrem (improving ) and Other (L arm brusing from fall-LATENT PRINT EXAMINER )
Skin: Warm; Negative Rash
Neuro: Awake, Alert, Oriented, AO x 3, No Motor Deficits and Nonfocal/Grossly Intact
Psych: Calm
--- NOTE | 2023-07-10 11:38 | W.PN.CARDCBS ---
Today's Communication / Plan
-
Continue IV Lasix for now and monitor renal function closely
Suspect we can transition to p.o. diuretics in the next 24 to 48 hours
Impression / Plan
-
Repair Welder: Dr. Mendez
Impression:
Diffuse edema of the upper and lower extremities as well as periorbital/facial and progressive dyspnea on exertion
-Gleevac associated fluid retention versus heart failure with preserved ejection fraction
-per patient started 2 weeks after initiation of Gleevac
-Facial/periorbital edema has improved following discontinuation of Gleevec 1 week ago
-Elevated proBNP 5330; troponin less than 0.012
-2D echocardiogram 07/09/2023 with normal biventricular size and systolic function, no significant valve abnormalities, no evidence of pulmonary hypertension, normal diastolic function and no pericardial effusion.
-Lower extremity Doppler - 06/29/2023 for DVT
-VQ scan 07/09/2023 very low probability of PE
Chronic anemia requiring transfusions
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
Chronic renal insufficiency
History of paroxysmal atrial fibrillation in sinus rhythm, currently not anticoagulated due to bleeding risk
History of known coronary artery disease status post LAD stent January 15, 2021; no history of myocardial infarct
Plan:
Diffuse fluid retention with workup ongoing. Possible Gleevac associated fluid retention +/- heart failure with preserved ejection fraction.
-Responding well to IV Lasix - would continue for now and monitor renal function closely
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
-Gleevec from 05/19/23-06/30/23
-Appreciate oncology input
History of paroxysmal atrial fibrillation currently in sinus rhythm
-Monitor on telemetry
-No anticoagulation or aspirin given transfusion requiring anemia
History of coronary artery disease status post LAD stent 2020
-Stable without symptoms of angina. Undetectable cardiac troponin.
-EKG stable
Progress Note - Repair Welder
Subjective
Date of Service: July 10, 2023
No acute overnight events. Patient is resting comfortably in bed. Tells me his peripheral edema is significantly improved.
Objective
Labs:
07/10/23 05:59
07/10/23 05:59
Labs
Hgb 7.5 g/dL (13.0-18.0) L 07/10/23 05:59
Hct 22.5 % (39.0-52.0) L 07/10/23 05:59
Plt Count 377 10^3/uL (130-400) 07/10/23 05:59
Sodium 134 mmol/L (135-145) L 07/10/23 05:59
Potassium 4.2 mmol/L (3.5-5.1) 07/10/23 05:59
BUN 27 mg/dl (9-20) H 07/10/23 05:59
Creatinine 1.6 mg/dL (0.7-1.3) H 07/10/23 05:59
Glucose 73 mg/dl (70-99) 07/10/23 05:59
Troponins
07/09/23
11:37
Troponin I < 0.012
Vital Signs and I&O:
Vital Signs
Temp Pulse Resp BP Pulse Ox
98.0 F 73 18 136/72 96
07/10/23 07:55 07/10/23 07:55 07/10/23 07:55 07/10/23 07:55 07/10/23 07:55
Vital Signs
Temp Pulse Resp BP Pulse Ox
98.0 F 73 18 136/72 96
07/10/23 07:55 07/10/23 07:55 07/10/23 07:55 07/10/23 07:55 07/10/23 07:55
Intake & Output
07/08/23 07/09/23 07/10/23 07/11/23
06:59 06:59 06:59 06:59
Intake Total 1290 / 1290
Output Total 2024 2600 / 2600
Balance -2024 -0 / -1310
Physical Exam
Physical Exam
Gen: NAD, AAOx3
HEENT: NC/AT, sclera anicteric
Neck: No JVD
CV: RRR, NL s1/s2
Lungs: CTAB
Abd: S/ND
Ext: Trace LE edema
Skin: Warm, dry
Neuro: Non-focal
[2023-07-10] MEDS: LOVENOX 30 MG SC (17:31)
[2023-07-11 03:00] VITALS: BP 108/86
[2023-07-11 06:00] VITALS: BMI 24.5
[2023-07-11 07:10] VITALS: BP 139/84
[2023-07-11 07:27] LABS: % Basophils 1.1 % (0-2); % Eosinophils 22.6 % (0-6); % Immature Granulocytes 0.7 % (0-0.5); % Lymphocytes 16.7 % (20.5-51.1); % Monocytes 16.1 % (1.7-9.3); % Neutrophils 42.8 % (42.2-75.2); Absolute Basophils 0.1 10^3/uL (0-0.2); Absolute Eosinophils 1.7 10^3/uL (0-0.7); Absolute Immature Granulocytes 0.1 10^3/uL (0-0.05); Absolute Lymphocytes 1.2 10^3/uL (1.2-3.4); Absolute Monocytes 1.2 10^3/uL (0.1-0.6); Absolute Neutrophils 3.2 10^3/uL (1.4-6.5); Hematocrit 22.3 % (39.0-52.0); Hemoglobin 7.5 g/dL (13.0-18.0); Mean Corp Hgb Conc. 33.6 g/dL (33.0-37.0); Mean Corpuscular Hgb 30.4 pg (27.0-31.0); Mean Corpuscular Volume 90.3 fL (80.0-94.0); Nucleated Red Blood Cells % 0 % (-); Platelet Count 378 10^3/uL (130-400); Red Blood Cell Count 2.47 10^6/uL (4.70-6.10); Red Cell Dist. Width 18.8 % (11.5-14.5); White Blood Cell Count 7.4 10^3/uL (4.8-10.8)
[2023-07-11 08:10] LABS: Blood Urea Nitrogen 23 mg/dl (9-20); Calcium 8.2 mg/dl (8.4-10.2); Carbon Dioxide 26 mmol/L (22-30); Chloride 104 mmol/L (98-107); Estimated Creatinine Clearance 39 ml/min; Glucose 78 mg/dl (70-99); Potassium 4.1 mmol/L (3.5-5.1); Sodium 133 mmol/L (135-145); eGFR 45.06
[2023-07-11] MEDS: TYLENOL 1000 MG PO (08:47)
[2023-07-11] MEDS: COLACE 100 MG PO (08:47)
[2023-07-11] MEDS: PROTONIX 40 MG PO (08:47)
[2023-07-11] MEDS: VITAMIN B-12 500 MCG PO (08:47)
[2023-07-11] MEDS: LASIX 40 MG IV (08:48)
--- NOTE | 2023-07-11 10:14 | W.PN.HOSP.TC ---
Today's Communication/Plan
-
F/U further cardiology recs- potential DC later today. F/U recs for lasix dosing on DC
PT consult in place pre discharge
Assessment / Plan
Assessment / Plan
#Dyspnea and LE swelling 2/2 adverse reaction from chemotherapy
Echo with ejection fraction 60-55%. Normal diastolic function. Normal right ventricular size and function. No significant valvular pathology. PASP 27 mmHg. Mildly dilated aortic root and ascending aorta.
VQ scan with low probability of PE
Lower extremity venous Doppler on 06/29 negative
XR chest with minimal b/l pleural effusion
Hold Amlodipine, can resume on DC given main culprit Imatinib
IV lasix
creatinine stable
F/U further cardiology recs- potential DC later today. F/U recs for lasix dosing on DC
#CKD3b
Cr of 1.6
Cr was 1.4 in 05/18
Monitor closely with diuresis.
#Elevated Alk.phos
most likely 2/2 chemo
Improving
#Chronic anemia
#Thombocytosis
reactive 2/2 chemo
follow CBC
Hemoglobin 7.5
Appropriate Iron stores
Transfuse <7.
No luminal bleeding noted
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
#Hx of DVT
#unspecified Afib not on AC
cont home meds
Trend H/H
#recent mechanical fall with L elbow and L rib-cage pain
XR L elbow and ribs
negative for fracture
#Pain in throat
no signs of thrush
Topical anesthetic
DVT ppx start lovenox
Full code
Anticipated Discharge: Within 24 hours
Subjective/Interval History
-
Date of Service: July 11, 2023
feeling well
hoping to leave today
swelling much improved
Objective Data
-
Labs:
Laboratory Results
07/11/23
06:34
WBC 7.4
Hgb 7.5 L
Hct 22.3 L
Plt Count 378
Sodium 133 L
Potassium 4.1
Chloride 104
Carbon Dioxide 26
BUN 23 H
Creatinine 1.5 H
Glucose 78
Calcium 8.2 L
Vital Signs:
Vital Signs
Temp Pulse Resp BP Pulse Ox
98.5 F 78 16 139/84 97
07/11/23 07:10 07/11/23 08:48 07/11/23 07:10 07/11/23 08:48 07/11/23 07:10
I&O
07/10/23 07/11/23 07/12/23
06:59 06:59 06:59
Intake Total 1290 / 1290 1700 / 1700
Output Total 2600 / 2600 750 / 750
Balance -1310 / -1310 950 / 950
Review of Systems
-
History Source: Patient
All other systems: Reviewed and negative
Physical Exam
-
General: Well Developed and No Apparent Distress
HEENT: Normocephalic, Atraumatic and Moist Mucous Membranes
Respiratory: Clear to Auscultation
Cardiac: Regular Rhythm and S1/S2; Negative Murmur, Rub or Gallop
GI: Soft, Nontender, Nondistended and Normal Bowel Sounds; Negative Organomegaly
Rectal: Deferred by Provider
Musculoskeletal: No Clubbing, No Cyanosis, Edema, Right Lower Extrem (c), Edema, Left Lower Extrem (improving ) and Other (L arm brusing from fall-CAT TENDER )
Skin: Warm; Negative Rash
Neuro: Awake, Alert, Oriented, AO x 3, No Motor Deficits and Nonfocal/Grossly Intact
Psych: Calm
Data Reviewed
-
Diagnostic Radiology: Report Reviewed by me
Labs: Labs Reviewed by me
--- NOTE | 2023-07-11 10:27 | W.PN.ONC ---
Addendum entered and electronically signed by Oma Gilmore, 07/11/23 11:16:
The HOSPITAL CARRIER or PA's note was reviewed and I agree with the assessment and plan. Out-pt oncology follow up with Dr. Lane for ongoing management. Plan to continue to hold Gleevac on discharge.
Original Note:
Today's Communication / Plan
-
07/10 Hgb 7.5, Hct 22.3
Transfuse if needed to maintain Hgb >7
Monitor H/H closely
Lasix/diuresis per Cards
Holding Imatinib (Gleevac) indefinitely due to side effects of fluid retention/peripheral edema/heart failure - Patient verbalizes understanding
Discharge planning
Follow-up with Dr. Lane is scheduled 08/10 @ 0915 in the [facility] office. The office has been notified to reschedule for earlier follow up for discussion/consideration of TKI therapies. Patient has CT abd/pelvis ordered in follow up to be
reviewed. This will be adjusted accordingly. We will follow.
Impression
Impression
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
Fluid overload exacerbated by Imatinib (Gleevac)
Thrombocytosis (resolved)
CKD3b
Subjective/Objective
Subjective/Objective
Patient is sitting up in the chair. Finished entire breakfast tray. He states he feels significantly better with diuresis. He has questions regarding follow up with [place].
Vital Signs:
Vital Signs
Temp Pulse Resp BP Pulse Ox
98.5 F 78 16 139/84 97
07/11/23 07:10 07/11/23 08:48 07/11/23 07:10 07/11/23 08:48 07/11/23 07:10
physical exam:
aaox3, pleasant/cooperative
HRR, lungs clear/poor effort, room air
+bowel sounds. trace LE edema
Lab Results:
Laboratory Data
WBC 7.4 10^3/uL (4.8-10.8) 07/11/23 06:34
Hgb 7.5 g/dL (13.0-18.0) L 07/11/23 06:34
Plt Count 378 10^3/uL (130-400) 07/11/23 06:34
eGFR 45.06 07/11/23 06:34
07/09/23 NM VQ scan: Very low probability of PE using the modified PIOPED II criteria.
07/09/23: Abd US: There is a 12 x 14 x 13 cm thin-walled cystic left upper quadrant mass consistent with the lesion seen on MRI and most suggestive of gastrointestinal stromal tumor. There are multiple hepatic masses measuring up to 2 cm consistent
with the patient's known hepatic metastasis and similar to that seen on the 04/26/2023 MRI examination.
[2023-07-11 11:10] VITALS: BP 121/63
--- NOTE | 2023-07-11 12:07 | W.PN.CARDCBS ---
Addendum entered and electronically signed by Rodríguez Salter MD 07/11/23 13:09:
Patient feels well, would like to go home
allergies: None
Medications: Amlodipine 5 mg a day, Atorvastatin 20 mg a day, Gleevec, Pantoprazole, not listed as being on aspirin
Current meds: Atorvastatin 20 mg a day, vitamin B12, Colace, pantoprazole, furosemide 40 mg daily IV, enoxaparin
PMH/PSH/SH/FH: Reviewed
Review of systems: Negative except as above
139/84, pulse 78, weight is 81.9 kg, down 0.7 kg, on admission weight was 91.4 kg if accurate, intake and output suspect incomplete
No distress, head neck exam unremarkable, lungs are clear, JVD okay, no obvious murmurs, regular rate and rhythm, abdomen benign, extremities still with 1+ edema, neuro nonfocal
VQ scan low probably
Ultrasound of abdomen left upper quadrant 12 x 14 x 13 cm cystic mass consistent with GIST, multiple hepatic masses
Hemoglobin 7.5, platelets are 378, white count is 7.4
Sodium is 133, BUN and creatinine are 23 and 1.5, potassium is 4.1, creatinine is overall stable since admission, at baseline
Impression:
Diffuse edema of the upper and lower extremities as well as periorbital/facial and progressive dyspnea on exertion
-Gleevac associated fluid retention versus heart failure with preserved ejection fraction
-per patient started 2 weeks after initiation of Gleevac
-Facial/periorbital edema has improved following discontinuation of Gleevec 1 week ago
-Elevated proBNP 5330; troponin less than 0.012
-2D echocardiogram 07/09/2023 with normal biventricular size and systolic function, no significant valve abnormalities, no evidence of pulmonary hypertension, normal diastolic function and no pericardial effusion.
-Lower extremity Doppler - 06/29/2023 for DVT
-VQ scan 07/09/2023 very low probability of PE
Chronic anemia requiring transfusions
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
Chronic renal insufficiency
History of paroxysmal atrial fibrillation in sinus rhythm, currently not anticoagulated due to bleeding risk
History of known coronary artery disease status post LAD stent January 15, 2021; no history of myocardial infarct
Plan:
Overall, he looks well. He is still somewhat volume overloaded, but with withdrawal of Gleevec I suspect that volume status will continue to improve with oral furosemide.
He is anxious to go home.
Platelet count is adequate, hemoglobin is 7.5, would not anticoagulate for PAF but would add aspirin 81 mg a day given that he has a drug-eluting stents, discussed with his primary noise abatement engineer
Recommended cardiac medications at discharge:
Furosemide 40 mg a day (new)
Aspirin 81 mg a day (restart)
Atorvastatin 20 mg a day
Would hold amlodipine which he was taking as an outpatient, reassess at follow-up visit
Please check BMP in 1 week
We will arrange for outpatient follow-up
Original Note:
Today's Communication / Plan
-
Transition to PO lasix 40mg daily
OK for discharge
Follow up arranged
Impression / Plan
-
Special Services Supervisor: Dr. Mendez
Impression:
Diffuse edema of the upper and lower extremities as well as periorbital/facial and progressive dyspnea on exertion
-Gleevac associated fluid retention versus heart failure with preserved ejection fraction
-per patient started 2 weeks after initiation of Gleevac
-Facial/periorbital edema has improved following discontinuation of Gleevec 1 week ago
-Elevated proBNP 5330; troponin less than 0.012
-2D echocardiogram 07/09/2023 with normal biventricular size and systolic function, no significant valve abnormalities, no evidence of pulmonary hypertension, normal diastolic function and no pericardial effusion.
-Lower extremity Doppler - 06/29/2023 for DVT
-VQ scan 07/09/2023 very low probability of PE
Chronic anemia requiring transfusions
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
Chronic renal insufficiency
History of paroxysmal atrial fibrillation in sinus rhythm, currently not anticoagulated due to bleeding risk
History of known coronary artery disease status post LAD stent January 15, 2021; no history of myocardial infarct
Plan:
-Presented with diffuse edema. [place] to be Gleevac associated fluid retention. Oncology following and plan is to continue to hold Gleevac at discharge.
-Diuresed with IV lasix 40mg daily while admitted. OK to transition to PO lasix 40mg daily.
-Weight down at least 11 lbs this admission, down to 180 lbs on 07/10.
-Creat stable at 1.5. BMP in 1 week as OP.
-Remains in SR at this time. HR stable.
-Not anticoagulated given anemia requiring transfusion. Hgb 7.5.
-Follow up arranged w/ cardiology office.
Progress Note - Special Services Supervisor
Subjective
Date of Service: July 11, 2023
Improving, feels ready for d/c
Objective
Labs:
07/11/23 06:34
07/11/23 06:34
Labs
Hgb 7.5 g/dL (13.0-18.0) L 07/11/23 06:34
Hct 22.3 % (39.0-52.0) L 07/11/23 06:34
Plt Count 378 10^3/uL (130-400) 07/11/23 06:34
Sodium 133 mmol/L (135-145) L 07/11/23 06:34
Potassium 4.1 mmol/L (3.5-5.1) 07/11/23 06:34
BUN 23 mg/dl (9-20) H 07/11/23 06:34
Creatinine 1.5 mg/dL (0.7-1.3) H 07/11/23 06:34
Glucose 78 mg/dl (70-99) 07/11/23 06:34
Troponins
07/09/23
11:37
Troponin I < 0.012
Vital Signs and I&O:
Vital Signs
Temp Pulse Resp BP Pulse Ox
97.7 F 68 18 121/63 97
07/11/23 11:10 07/11/23 11:10 07/11/23 11:10 07/11/23 11:10 07/11/23 11:10
Vital Signs
Temp Pulse Resp BP Pulse Ox
97.7 F 68 18 121/63 97
07/11/23 11:10 07/11/23 11:10 07/11/23 11:10 07/11/23 11:10 07/11/23 11:10
Intake & Output
07/09/23 07/10/23 07/11/23 07/12/23
06:59 06:59 06:59 06:59
Intake Total 1290 / 1290 1700 / 1700
Output Total 2024 / 2024 2600 / 2600 750 / 750
Balance -2024 / -2024 -1310 / -1310 950 / 950
Physical Exam
Physical Exam
Gen: NAD, AAOx3
HEENT: NC/AT, sclera anicteric
CV: RRR, NL s1/s2
Lungs: CTA b/l
Ext: Trace LE edema
Skin: Warm, dry
Neuro: Non-focal
[2023-07-11 12:08] VITALS: BP 116/63; PULSE 70; O2SAT 99
[2023-07-11] MEDS: FOLVITE 1 MG PO (12:53)
--- NOTE | 2023-07-11 14:00 | W.DCSUMMARY ---
Discharge Summary
Discharge Data
Date of Admission: 07/10/23
Date of Discharge: 07/11/23
-
Pending Results: No
Hospital Course
Discharging Physician : Dr. Any Song
Disposition : Home with home health
Primary care physician : Dr. Roland Scott
Principal Discharge diagnosis : Gleevac associated fluid retention versus heart failure with preserved ejection fraction
Hospital Course :
Mr. Aguila Flynn is a 87 yo man with hx GIST tumor on chemotherapy, hx DVT, HTN, CKD, paroxysmal atrial fibrillation, CAD s/p PCI 12/2020 presents to the ER with increased lower extremity swelling and shortness of breath. Patient reported progressive
swelling since starting Imantinib 6 weeks ago. Triage vitals significant for hypertension 187/88. Labs with anemia and baseline renal function. He was admitted to medicine with Oncology and Cardiology consulting. Patient was diuresed with drop in
weight from 86.6kg to 81.8kg on day of discharge. TTE repeated without significant change. He is discharged home with instructions to stop Imantinib. His amlodipine was also held (BP 121/62 prior to discharge). He is discharged on lasix 40mg PO
QD with plans for repeat BMP in one week and close cardiology follow up.
Of note, patient had a recent mechanical fall. Imaging did not show any acute fracture and he ambulated well prior to discharge. arranged.
Patient will follow up with his Oncologist, Dr. Lane to discuss further therapeutic options for GIST tumor.
Time spent on discharge was 35 minutes.
Important imaging findings :
TTE
CONCLUSIONS
�Normal left ventricular size, wall thickness and systolic function. No regional
�wall motion abnormalities are seen. LV ejection fraction is 60-65% by visual
�assessment. Normal diastolic function.
�Normal right ventricular size and function.
�No significant valvular pathology
�Estimated pulmonary artery pressure of 27 mmHg, assuming a right atrial
�pressure of 3 mmHg.
�Mildly dilated aortic root and ascending aorta.
�
�Compared to prior study dated 03/08/23, there is no significant change
CHEST X-RAY
IMPRESSION:
Small left pleural effusion with associated probable atelectasis, new from prior. Mild right basilar probable atelectasis and trace right pleural effusion, slightly progressed.
ELBOW X-RAY 07/08/23
IMPRESSION:
No acute fracture or dislocation. Advanced degenerative changes of the elbow joint articulations. 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 Large posterior elbow soft tissue swelling likely reflecting hematoma
and/or olecranon bursitis.
RIBS X-RAY
IMPRESSION:
No displaced rib fractures.
V/Q SCAN
IMPRESSION:
Very low probability using the modified PIOPED II criteria.
ABDOMEN US
IMPRESSION:
1).There is a 12 x 14 x 13 cm thin-walled cystic left upper quadrant mass consistent with the lesion seen on MRI and most suggestive of gastrointestinal stromal tumor
2).There are multiple hepatic masses measuring up to 2 cm consistent with the patient's known hepatic metastasis and similar to that seen on the 04/26/2023 MRI examination.
Procedure findings :
Discharge Plan
-
Patient Disposition: Home with Home Care
Discharge Diagnosis/Procedures: Gleevac associated fluid retention versus heart failure with preserved ejection fraction
Diet: 2 Gram Sodium and Restrict fluids to 48 oz
Activity: As tolerated
Driving Restrictions: As prior to admission
Bathing Restrictions: None
Blood Work: BMP in one week
Other Services: VN and PT
Specialty Instructions: Weigh Daily- Call MD for wt gain/loss 3 lbs overnight/5 lbs in 1 week
Instructions: *PCP/Other [facility] Heart Failure Instructions
Referrals:
Lakia Chaney CRNP [Specified Professional Personl] - 07/14/23 3:00 pm (You have a follow up visit with Dr. Mendez's HAND BOOKBINDER, Lakia Chaney, at the [facility]. Please call with questions. )
Roland Scott MD [Family Provider] - in less than 1 week
Additional Discharge Medication Instructions: Stop Imatinib (Gleevac). You are started on folate supplementation.
Stop amlodipine. Your blood pressure will be monitored as outpatient.
Prescriptions:
New
folic acid 1 mg Tablet
1 mg PO DAILY Qty: 30 0RF
furosemide [Lasix] 40 mg tablet
40 mg PO DAILY Qty: 30 0RF
aspirin 81 mg capsule
81 mg PO DAILY Qty: 30 0RF
Continued
Fiber Therapy (m-cellulose) 500 MG tablet
500 mg PO QPM
cholecalciferol (vitamin D3) 1,000 UNITS tablet
1,000 units PO QPM
docusate sodium 100 MG capsule
100 mg PO DAILY
cyanocobalamin (vitamin B-12) [Vitamin B-12] 500 mcg Tablet
500 mcg PO DAILY
atorvastatin 20 mg tablet
20 mg PO QPM
acetaminophen 500 mg Tablet
1,000 mg PO DAILY
pantoprazole 40 MG tablet,delayed release (DR/EC)
40 mg PO BID
Discontinued
amlodipine [Norvasc] 5 mg Tablet
5 mg PO DAILY
Hold Instructions: Resume on 05/13/23. Check with your primary care provider regarding if and when you should resume this medication.
imatinib 400 mg tablet
400 mg PO QPM
Discharge Orders:
Discharge Patient (As Directed); Ordered 07/11/23
Ordered By: Any Song
[2023-07-11 15:10] VITALS: BP 110/57
--- NOTE | 2023-07-11 16:27 | CM ---
MD entered order for discharge.
Spoke with patient in room.
He said he was ready for discharge.
Pt was changed to inpatient . IMM reviewed signed and on chart.
Offered Vn he requested [facility]
His son Chilo will drive him home.
PLAN Home with [facility] [phone]
== END 2023-07-11 16:39 | disposition home health service (06) | DRG 641 ==
LOC: 4 EAST ACU 08:07
PROVIDERS: Hospitalist; ADMITTING PHYSICIAN Internal Medicine; ATTENDING PHYSICIAN Student in an Organized Health Care Education/Training Program; CONSULT PHYSICIAN Internal Medicine Cardiovascular Disease; CONSULT PHYSICIAN Internal Medicine Hematology & Oncology; EMERGENCY PHYSICIAN Emergency Medicine; FAMILY PHYSICIAN Family Medicine
DX: E87.79 Other fluid overload (principal); C49.A2 Gastrointestinal stromal tumor of stomach; C78.7 Secondary malignant neoplasm of liver and intrahepatic bile duct; J98.11 Atelectasis; I12.9 Hypertensive chronic kidney disease with stage 1 through stage 4 chronic kidney disease, or unspecified chronic kidney disease; N18.32 Chronic kidney disease, stage 3b; T45.1X5A Adverse effect of antineoplastic and immunosuppressive drugs, initial encounter; D64.9 Anemia, unspecified; I48.0 Paroxysmal atrial fibrillation; I25.10 Atherosclerotic heart disease of native coronary artery without angina pectoris; Z95.5 Presence of coronary angioplasty implant and graft
CPT/HCPCS: 71046; 71100; 73080; 76700; 78582; 80048; 80053; 82607; 82728; 82746; 83540; 83550; 83735; 83880; 84443; 84484; 85025; 85652; 93005; 93306; 96374; 97162; 99284; A9540; A9567

== ENCOUNTER → 2023-08-03 08:52 | Outpatient (REF) | payer MEDICARE, SELFPAY | LOC: HWRAD 08:52 | PROVIDERS: ATTENDING PHYSICIAN Internal Medicine Hematology & Oncology; FAMILY PHYSICIAN Family Medicine | DX: C49.A2 Gastrointestinal stromal tumor of stomach (principal) | CPT/HCPCS: 74177; Q9967 ==

== ENCOUNTER 2023-10-28 15:40 | Emergency (ER) | payer MEDICARE, SELFPAY ==
[2023-10-28 15:43] VITALS: BP 129/66
--- NOTE | 2023-10-28 16:33 | ED.GENMED ---
History of Present Illness
General
Chief Complaint: Fall
Source: patient
Exam Limitations: none
Time Seen by Provider: 10/28/23 16:32
History of Present Illness
History of Present Illness:
88 y/o male with pmh of anemia, A-fib, GERD, coronary artery disease presenting to the emergency department today presenting to the emergency department today with concerns of multiple skin tears and lacerations following a fall. Patient states that
he has chronic issues with balance. He also states that he has chronic lightheadedness due to anemia. He states that his hemoglobin normally lives in the 7's and he had outpt lab work done recently which demonstrated a hemoglobin of 6.8 or so, and
so patient was scheduled for a transfusion next week. Patient states that lightheadedness is not why he fell--he states that he was in the garage reaching up to grab stuff and he stepped over a step in the garage, did not have hands to stabilize
him, and subsequently fell onto his right side and hit his head on the way down. He does take a baby aspirin daily. Notes some mild neck pain, denies paresthesias. Denies syncopal episode, chest pain, shortness of breath, headache.
Past History
Past History
ED Past Medical History: Arrthythmia, CAD and HTN
ED Past Surgical History: Cardiac
Social History
Tobacco: Non-smoker
Alcohol: Occasional
Drug: None
Personal:
Living: with family
Employment: Retired
Family History
Family History: Other
Review of Systems
Review of Systems
All Other Systems: ROS reviewed and negative except as documented in HPI and ROS
Phy Exam
Physical Exam
Physical Exam:
GENERAL: Patient is well appearing and in no acute distress; non-toxic
SKIN: There is a 3 cm vertical linear laceration on the right temporal region with surrounding ecchymosis. Large total flap loss skin tear located on the anterior surface of the right tabares. Moderate skin tear with total flap loss on the
anterio-lateral surface of the right forearm. Small skin tear with partial flap loss overlying the posterior right wrist.
HEAD: See above. No tenderness to palpation of the facial bones. TMJ joints intact bilaterally.
EYES: Sclera non-icteric. EOMs intact. PERRLA.
CARDIAC: Regular rate
PERIPHERAL VASCULAR: No lower extremity swelling or edema
PULM: Normal respiratory effort
MUSCULOSKELETAL: No pain with passive range of motion of bilateral upper and lower extremities. No bony tenderness. 5/5 strength in bilateral upper and lower extremities.
NEURO: CN II-XII intact, no focal neurologic deficits.
PSYCH: Appropriate mood and affect
Course
Orders/Labs/Results
Orders:
Orders
10/28/23 17:03
Tetanus/Diphth/Acelpertussis [Adacel] 0.5 ml IM .ONCE ONE
10/28/23 20:36
10/28/23 17:03
Vital Signs
Initial and Last Documented VS:
Initial Vital Signs
Temp Pulse Resp BP Pulse Ox
98.2 F 69 16 129/66 98
10/28/23 15:43 10/28/23 15:43 10/28/23 15:43 10/28/23 15:43 10/28/23 15:43
Last Documented Vital Signs
Temp Pulse Resp BP Pulse Ox
98.2 F 69 16 129/66 98
10/28/23 15:43 10/28/23 15:43 10/28/23 15:43 10/28/23 15:43 10/28/23 15:43
Procedures
Laceration Closure
Right Lateral Face:
Status of Wound: clean
Size of Wound in cm: 3
Description of Wound Edges: sharp
Preparation: cleaned with saline
Anesthesia: 1% Lidocaine with epi
Revision/Debridement: routine- no revision
Wound exploration: explored to base- no FB
Type of Closure: single layer closure
Skin Closure Material: 5-0 prolene
Number of sutures: 6
MDM/Problems Addressed
Differential Diagnosis Includes:
ddx include epidural hematoma, subdural hematoma, skin tear, laceration, cellulitis, anemia
MDM/Problems Addressed:
Fall:
88 y/o male with pmh of anemia, A-fib, GERD, coronary artery disease presenting to the emergency department today presenting to the emergency department today with concerns of multiple skin tears and lacerations following a fall. Patient tripped and
fell onto his right side. Patient hit his head and endured a laceration. Skin abrasions were dressed with oil emersion dressing, non-adherent pad, and kyrlex. Home care instructions given. Considering patients use of aspirin, signs of head trauma,
and age, I ordered a CT scan of head and neck. Patient initially agreed to have these studies done, however patient than declined because he feels that he did not hit his head hard enough and states he does not want to wait for a scan. Patient
present with son. Patient does have decision making. My attending Dr. Mccormick and I thoroughly explained to patient that he is at very high risk of intracranial trauma/bleeding and we cannot clinically rule out these complications. Patient
and family express understanding and still decline test.
In addition, I ordered lab work considered patient's hx of severe anemia dheeraj in the setting of trauma. Patient had an outpt lab work done which resulted a Hgb of 6.8. Explained to patient that we usually transfuse patients with a hemoglobin under 7.
Patient declining and states he has an infusion scheduled for next week. Patient requesting for his wounds to be dressed and to go home. Laceration repaired with sutures. Patient stable for discharge, thoroughly discussed return precautions.
Acute Exacerbation and/or Progression of Chronic Illness:
anemia, afib, aspirin use, CAD, htn
*Pulse Oximetry
Patient hypoxic: no
*Critical Care Note
Total Time (30-74mins, 75-104mins- exclusive of procedures): Not Applicable
Data Reviewed
Review of Other/Old Records Reveals: Records (reviewed ER physician documentation from 07/08/23, discharge summary from 07/11/23)
Source: patient and records
Further Testing Considered But Not Given:
Considered CT head, cervical spine, labs, patient declining, risks and benefits thoroughly explained, patient has decision makig capacity
Patient Management
Escalation/DeEscalation of care consider admission/obs:
Admit not indicated.
ED Attending Note
-
Portions of this chart may have been created with voice recognition software.� Occasional wrong word or��sound alike� substitutions may have occurred due to the inherent limitations of voice recognition software.
Discharge Plan
Departure
Patient Disposition: Home (Routine Discharge)
Date of Disposition: 10/28/23
Time of Disposition: 18:24
Patient with high blood pressure during this ER visit?: Yes
Condition: Good
Discharge Problem:
Fall, Facial laceration
Prescriptions:
No Action
Fiber Therapy (m-cellulose) 500 MG tablet
500 mg PO QPM
cholecalciferol (vitamin D3) 1,000 UNITS tablet
1,000 units PO QPM
docusate sodium 100 MG capsule
100 mg PO DAILY
cyanocobalamin (vitamin B-12) [Vitamin B-12] 500 mcg Tablet
500 mcg PO DAILY
atorvastatin 20 mg tablet
20 mg PO QPM
acetaminophen 500 mg Tablet
1,000 mg PO DAILY
pantoprazole 40 MG tablet,delayed release (DR/EC)
40 mg PO BID
folic acid 1 mg Tablet
1 mg PO DAILY Qty: 30 0RF
furosemide [Lasix] 40 mg tablet
40 mg PO DAILY Qty: 30 0RF
aspirin 81 mg capsule
81 mg PO DAILY Qty: 30 0RF
Activity Restrictions/Additional Instructions:
Please change dressing once daily. You can place an oil immersion dressing over the skin tear, followed by a nonadherent pad, followed by either Kerlix or Stiven wrap.
Please report to her family doctor, urgent care or emergency department to have your stitches removed in 7 to 10 days. You can expect clear to bloody fluid draining from this, however if you have purulent drainage from the wound, extensive
surrounding redness, increasing pain, fevers or chills please return to emergency department.
Please return emergency department if you start to experience headaches, dizziness, syncopal episodes, lightheadedness, seizure-like activity visual changes, or any other concerning signs or symptoms.
Interventions
Interventions:
*Risk Screen - Suicide Last Done: 10/28/23 15:43
*General Assessment Last Done: 10/28/23 15:43
*Neglect/Abuse Screening Last Done: 10/28/23 15:43
*Nursing Disposition Last Done: 10/28/23 18:38
ED-Musculoskeletal Assessment Last Done: 10/28/23 16:37
ED- Neurological Assessment Last Done: 10/28/23 16:37
ED-Skin Assessment Last Done: 10/28/23 18:23
Discharge Date and Time
Discharge Date/Time: 10/28/23 18:39
Print Language: QATARI
[2023-10-28] MEDS: ADACEL 0.5 ML IM (17:46)
== END 2023-10-28 18:39 | disposition home or self-care (01) ==
LOC: EMR 15:40
PROVIDERS: EMERGENCY PHYSICIAN Emergency Medicine; FAMILY PHYSICIAN Family Medicine
DX: S01.81XA Laceration without foreign body of other part of head, initial encounter (principal); S81.811A Laceration without foreign body, right lower leg, initial encounter; S51.811A Laceration without foreign body of right forearm, initial encounter; W01.0XXA Fall on same level from slipping, tripping and stumbling without subsequent striking against object, initial encounter; I48.91 Unspecified atrial fibrillation; K21.9 Gastro-esophageal reflux disease without esophagitis; I25.10 Atherosclerotic heart disease of native coronary artery without angina pectoris; I10 Essential (primary) hypertension
CPT/HCPCS: 99282; 12013; 90471; 90715

== ENCOUNTER 2024-01-14 16:05 | Observation (INO) | payer MEDICARE, SELFPAY ==
[2024-01-14] VITALS (9 sets, daily range): BP systolic 126–194; BP diastolic 83–104; BMI 21.7; BMI 20.7
[2024-01-14 10:06] LABS: % Basophils 0.9 % (0-2); % Immature Granulocytes 1.5 % (0-0.5); % Monocytes 15.5 % (1.7-9.3); % Neutrophils 73.1 % (42.2-75.2); Absolute Basophils 0.1 10^3/uL (0-0.2); Absolute Eosinophils 0.2 10^3/uL (0-0.7); Absolute Immature Granulocytes 0.1 10^3/uL (0-0.05); Absolute Lymphocytes 0.6 10^3/uL (1.2-3.4); Absolute Monocytes 1.2 10^3/uL (0.1-0.6); Absolute Neutrophils 5.8 10^3/uL (1.4-6.5); Hematocrit 31.5 % (39.0-52.0); Hemoglobin 10.1 g/dL (13.0-18.0); Mean Corp Hgb Conc. 32.1 g/dL (33.0-37.0); Mean Corpuscular Hgb 28.3 pg (27.0-31.0); Mean Corpuscular Volume 88.2 fL (80.0-94.0); Nucleated Red Blood Cells % 0 % (-); Platelet Count 418 10^3/uL (130-400); Red Blood Cell Count 3.57 10^6/uL (4.70-6.10); Red Cell Dist. Width 16.8 % (11.5-14.5)
[2024-01-14 10:08] LABS: Urine Albumin Trace (Neg - Trace); Urine Bilirubin Negative (Negative); Urine Character Clear (Clear); Urine Color Yellow; Urine Glucose Negative (Negative); Urine Ketone Negative (Negative); Urine Leukocyte Negative (Negative); Urine Nitrite Negative (Negative); Urine Occult Blood Negative (Negative); Urine Urobilinogen Negative (Neg - 1+); Urine pH 6.5 (5.0-9.0)
[2024-01-14 10:16] LABS: ALT (SGPT) < 10 U/L (0-50); AST (SGOT) 27 U/L (17-59); Albumin 3.5 g/dl (3.5-5.0); Alkaline Phosphatase 229 U/L (38-126); Blood Urea Nitrogen 20 mg/dl (9-20); Calcium 9.2 mg/dl (8.4-10.2); Carbon Dioxide 24 mmol/L (22-30); Chloride 101 mmol/L (98-107); Glucose 99 mg/dl (70-99); Potassium 5.2 mmol/L (3.5-5.1); Sodium 137 mmol/L (135-145); Total Bilirubin 0.7 mg/dl (0.2-1.3); Total Protein 6.4 g/dl (6.3-8.2); eGFR 44.78
--- NOTE | 2024-01-14 10:35 | ED.GENMED ---
History of Present Illness
General
Chief Complaint: Change in Mental Status
Source: patient and family
Time Seen by Provider: 01/14/24 10:35
History of Present Illness
History of Present Illness:
88-year-old male who has felt confused since yesterday. The patient states that he feels like he cannot figure out his body. Of note, the patient has an aphasia and makes it difficult to understand exactly what he is trying to describe. Patient
states he is frustrated that he cannot communicate what he wants to very well. The patient's son states this is new for him. Patient denies pain. 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
treatment. He denies any symptoms of his extremities. No fevers. No neck pain. No vomiting. No abdominal pain. No chest pain. Patient does have a history of atrial fibrillation.
Past History
Past History
ED Past Medical History: Arrthythmia, CAD, HTN and Other (GIST )
ED Past Surgical History: Cardiac
Social History
Tobacco: Non-smoker
Alcohol: Occasional
Drug: None
Personal:
Living: with family
Employment: Retired
Family History
Family History: Other
Phy Exam
Physical Exam
Physical Exam:
CONSTITUTIONAL Patient alert and oriented to person, place . Well-appearing. Vital signs reviewed.
HEAD atraumatic, normocephalic.
EYES eyelids normal to inspection, Extraocular muscles intact, Conjunctiva normal, Sclera normal.
NECK normal range of motion, Trachea midline, no jugular venous distention.
RESPIRATORY CHEST No respiratory distress noted, Chest expansion equal, Bilateral breath sounds clear.
CARDIOVASCULAR regular rate and rhythm, Heart sounds normal.
ABDOMEN abdomen nontender, Bowel sounds normal. No distention.
BACK normal inspection, no obvious deformities
UPPER EXTREMITY range of motion normal, Motor strength normal, no cyanosis, no edema.
LOWER EXTREMITY range of motion normal, Motor strength normal, no cyanosis, no edema.
NEURO aphasia noted. Has word finding difficulty. no focal motor deficits, Woodruff coma scale 15, Memory normal, Cranial Nerves intact to screening exam. No pronator drift
SKIN skin warm, dry, and normal in color.
Course
Orders/Labs/Results
Orders:
Orders
01/14/24 09:52
Complete Blood Count/With Diff Urgent
Comprehensive Metabolic Panel Urgent
Urinalysis Reflex To Culture Urgent
Date Specimen was Collected: 01/14/24
Time Specimen was Collected: 09:42
01/14/24 11:05
CT Head W/o Iv Contrast Urgent
Comment:
Reason For Exam: aphasia
01/14/24 13:45
Electrocardiogram (*1) Urgent
Reason for Study: TIA/Stroke
EKG- Treatment ONCE
01/14/24 15:27
Aspirin 325 mg PO NOW STA
Abnormal Lab Results
01/14/24
09:52
RBC 3.57 L 10^6/uL
(4.70-6.10)
Hgb 10.1 L g/dL
(13.0-18.0)
Hct 31.5 L %
(39.0-52.0)
MCHC 32.1 L g/dL
(33.0-37.0)
RDW 16.8 H %
(11.5-14.5)
Plt Count 418 H 10^3/uL
(130-400)
Abs Immat Gran (auto) 0.1 H 10^3/uL
(0-0.05)
Absolute Lymphs (auto) 0.6 L 10^3/uL
(1.2-3.4)
Absolute Monos (auto) 1.2 H 10^3/uL
(0.1-0.6)
Immature Gran % 1.5 H %
(0-0.5)
Lymphocytes % 7.0 L %
(20.5-51.1)
Monocytes % 15.5 H %
(1.7-9.3)
Potassium 5.2 H mmol/L
(3.5-5.1)
Creatinine 1.5 H mg/dL
(0.7-1.3)
Alkaline Phosphatase 229 H U/L
(38-126)
01/14/24 09:52
01/14/24 09:52
Vital Signs
Initial and Last Documented VS:
Initial Vital Signs
Temp Pulse Resp BP Pulse Ox
98.1 F 88 16 126/88 98
01/14/24 09:39 01/14/24 09:39 01/14/24 09:39 01/14/24 09:39 01/14/24 09:39
Last Documented Vital Signs
Temp Pulse Resp BP Pulse Ox
98.1 F 77 15 194/104 99
01/14/24 09:39 01/14/24 14:08 01/14/24 14:08 01/14/24 14:00 01/14/24 13:51
MDM/Problems Addressed
MDM/Problems Addressed:
Aphasia, CVA
*Radiology
Radiology exam reviewed: radiology read reviewed
*Pulse Oximetry
Patient hypoxic: no
*EKG
Interpreted by ED Provider?: Yes
Rate: normal
Rhythm: sinus
Ischemia: non-specific ST changes
*[employer] Interpretation
Rate: normal
Interpretation: normal
Rhythm: sinus
*Critical Care Note
Total Time (30-74mins, 75-104mins- exclusive of procedures): 40 minutes
Data Reviewed
Review of Other/Old Records Reveals: Discharge Summary
Source: patient
Prescriptions/Medications Considered But Not Given:
Consider anticoagulation and consider Plavix but given his GIST tumor and GI bleed history, caution
Patient Management
Discussion with other providers: Hospitalist (Case discussed with hospitalist who does recommend aspirin 325. Aware of his history of gastric tumor)
Escalation/DeEscalation of care consider admission/obs:
88-year-old male presents with aphasia. Concern for CVA. Is hypertensive. Case discussed with hospitalist. Does have a history of A-fib but currently in normal sinus rhythm. He is off anticoagulation due to GI bleed and gastric tumor history.
Not a TNK candidate due to symptoms starting close to 24 hours ago
ED Attending Note
-
Portions of this chart may have been created with voice recognition software.� Occasional wrong word or��sound alike� substitutions may have occurred due to the inherent limitations of voice recognition software.
Discharge Plan
Departure
Patient Disposition: Admit
Date of Disposition: 01/14/24
Time of Disposition: 14:03
Admit to: Telemetry
Presentation/result/management discussed w/ accepting MD/DO: Hospitalist
Discharge Problem:
Aphasia, Acute CVA (cerebrovascular accident)
Prescriptions:
No Action
Fiber Therapy (m-cellulose) 500 MG tablet
500 mg PO QPM
docusate sodium 100 MG capsule
100 mg PO DAILY
cyanocobalamin (vitamin B-12) [Vitamin B-12] 500 mcg Tablet
500 mcg PO DAILY
pantoprazole 40 MG tablet,delayed release (DR/EC)
40 mg PO BID
folic acid 1 mg Tablet
1 mg PO DAILY Qty: 30 0RF
atorvastatin 10 mg tablet
10 mg PO QPM
ondansetron HCl 8 mg tablet
8 mg PO TIDPRN PRN (Reason: nausea/vomiting)
cholecalciferol (vitamin D3) 25 mcg (1,000 unit) Tablet
25 mcg PO QPM
Referrals:
Roland Scott MD [Family Provider] -
Interventions
Interventions:
*Risk Screen - Suicide Last Done: 01/14/24 09:39
*General Assessment Last Done: 01/14/24 11:15
*Neglect/Abuse Screening Last Done: 01/14/24 09:39
ED- Pulmonary Assessment Last Done: 01/14/24 11:15
ED- Neurological Assessment Last Done: 01/14/24 11:15
ED- Cardiac Assessment Last Done: 01/14/24 11:15
ED Swallowing Screen Last Done: 01/14/24 11:15
Discharge Date and Time
Print Language: TONGAN
--- NOTE | 2024-01-14 15:34 | HPS.HSE ---
Family Physician
-
Family Physician: Roland Scott MD
Chief Complaint
-
difficulty speaking
History of Present Illness
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
since last night. He also complains of posterior headache. Denies any blurry vision. Denies any numbness or tingling, focal weakness, gait dysfunction.
He was previously on aspirin which was stopped a few months ago due to issues with bleeding from GIST tumor. Denies any bleeding currently.
Denies any smoking or alcohol use.
Medical History
Past Medical History
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
Past Surgical History: Reports None
Social History
Tobacco: Non-smoker
Alcohol: None
Drug: None
Family History
Family History: Not pertinent
Allergies / Home Medications
Allergies reflects when Allergies were last updated in [employer].
Home Medications with original date entered in [employer]
Allergy/Medication List:
Allergies
Allergy/AdvReac Type Severity Reaction Status Date / Time
No Known Allergies Allergy Verified 01/14/24 09:41
Home Medications
methylcellulose (laxative) 500 mg tablet (Fiber Therapy (methylcellulose)) 500 mg PO QPM Constipation 05/24/18
docusate sodium 100 mg capsule 100 mg PO DAILY Constipation 01/15/21
cyanocobalamin (vitamin B-12) 500 mcg tablet (Vitamin B-12) 500 mcg PO DAILY Supplement 04/14/23
pantoprazole 40 mg tablet,delayed release 40 mg PO BID Gastrointestinal Issue 07/08/23
folic acid 1 mg tablet 1 mg PO DAILY #30 tabs 07/11/23
atorvastatin 10 mg tablet 10 mg PO QPM 01/14/24
cholecalciferol (vitamin D3) 25 mcg (1,000 unit) tablet 25 mcg PO QPM 01/14/24
ondansetron HCl 8 mg tablet 8 mg PO TIDPRN PRN nausea/vomiting 01/14/24
Review of Systems
-
History Source: Patient
A 12 point ROS was completed and negative except as noted: Yes
Constitutional: Reports No Symptoms
EENT: Reports No Symptoms
Respiratory: Reports No Symptoms
Cardiac: Reports No Symptoms
Abdomen/GI: Reports No Symptoms
: Reports No Symptoms
Musculoskeletal: Reports No Symptoms
Skin: Reports No Symptoms
Neurological: Reports No Symptoms
Endocrine: Reports No Symptoms
Hematologic/Lymphatic: Reports No Symptoms
Psych: Reports No Symptoms
Physical Exam
Vital Signs
Vital Signs
Temp Pulse Resp BP Pulse Ox
98.1 F 84 23 167/99 98
01/14/24 09:39 01/14/24 15:15 01/14/24 15:15 01/14/24 15:05 01/14/24 15:15
Physical Exam
General: Well Developed, Well Nourished and No Apparent Distress
HEENT: NormoCephalic, Moist mucous membranes and Atraumatic
Respiratory: Clear
Cardiac: S1/S2 and Regular Rhythm; No Murmur or Rub
GI: Soft, Non Tender, Non Distended and Normal Bowel Sounds; No Organomegaly
Rectal: Deferred by Provider
Musculoskeletal: No Clubbing, No Cyanosis and No Edema
Skin: No Rash
Neuro: Nonfocal/grossly intact
Laboratory Results
-
01/14/24 09:52
01/14/24 09:52
Laboratory Results
Total Bilirubin 0.7 mg/dl (0.2-1.3) 01/14/24 09:52
AST 27 U/L (17-59) 01/14/24 09:52
ALT < 10 U/L (0-50) 01/14/24 09:52
Alkaline Phosphatase 229 U/L (38-126) H 01/14/24 09:52
Data Reviewed
-
Lab Data: Labs Reviewed by me
Old Records: Reviewed
Impression/Plan
-
IMPRESSION:
PLAN:
# Aphasia likely secondary to CVA
-Neurological examination unremarkable except for aphasia
-CT head shows no acute abnormality
-Will give dose of aspirin, hold off on Plavix due to history of bleeding from GIST tumor
-Check A1c and lipid panel
-Check speech and swallow, PT/OT
-Check MRI/MRA head and neck
-Neurology consulted
# Hypertensive urgency
-Permissive hypertension until tonight
-As needed hydralazine thereafter
# Mild hyperkalemia unclear etiology
-Recheck in the morning
History of unspecified A-fib
-Not on anticoagulation due to bleeding from GIST tumor
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
-He completed chemotherapy
History of GI bleed
-Continue Protonix
CKD 3B
-Renal function appears
Chronic anemia
-Hemoglobin of 10 improved from prior
Thrombocytosis
History of DVT
DNR/DNI
DVT prophylaxis�SCDs
Regular diet
[2024-01-14] MEDS: ASPIRIN 325 MG PO (15:54)
--- NOTE | 2024-01-14 18:15 | PTCARENOTE ---
Pt admitted into room 412-1, ambulated into room with [id number]. Pt AAO to person and place but not year. NIH =1 for very occasional aphasia. Tele showing NSR. VSS. Pt denies pain. Oriented patient to room and has call farrell within reach.
[2024-01-14] MEDS: METAMUCIL, KONSYL 1 PACKET PO (18:21)
[2024-01-14] MEDS: LIPITOR 10 MG PO (18:21)
[2024-01-14] MEDS: VITAMIN D3 (cholecalciferol) 25 MCG PO (18:21)
[2024-01-14] MEDS: PROTONIX 40 MG PO (22:03)
[2024-01-15] VITALS (7 sets, daily range): BP systolic 132–178; BP diastolic 67–99; BMI 20.7
[2024-01-15] MEDS: COLACE 100 MG PO (08:12)
[2024-01-15] MEDS: PROTONIX 40 MG PO ×2 (08:13→20:32)
[2024-01-15] MEDS: FOLVITE 1 MG PO (08:13)
[2024-01-15] MEDS: VITAMIN B-12 500 MCG PO (08:13)
[2024-01-15 09:17] LABS: HDL Cholesterol 77 mg/dl; LDL Cholesterol, Calculated 40 mg/dl; Total Cholesterol 132 mg/dl (50-199); Triglyceride 79 mg/dl (10-149); Very Low Density Lipoprotein 15 mg/dl (0-30)
--- NOTE | 2024-01-15 10:05 | W.PN.HOSP.TC ---
Today's Communication/Plan
-
.
Assessment / Plan
Assessment / Plan
Assessment
88-year-old male with past medical history significant for GIST tumor s/p chemotherapy (non tolerated), GI bleeding, CKD stage IIIb, chronic anemia, A-fib not anticoagulated presented with expressive aphasia and headache. CT scan showed no evidence
of ischemic or hemorrhagic stroke.
Impression
TIA
Unspecified A-fib
Mild hyperkalemia
GIST tumor
CKD stage IIIb
Chronic anemia
Hyperlipidemia
Plan
#TIA
Presentation with expressive aphasia and headache
Speech back to baseline
No focal neurological deficits
Received aspirin loading dose in the ER
CT head�no evidence of ischemic/hemorrhagic stroke
MRI brain-01/15/2024�no evidence of acute intracranial abnormality
MR angiography of the intracranial circulation is within normal limits.
MRA neck 01/15/2024�No significant narrowing involving the common carotid arteries, carotid bulbs, or proximal internal carotid arteries bilaterally. No significant narrowing of the cervical internal carotid arteries bilaterally.
Normal appearance of the vertebral and basilar arteries with no evidence for narrowing or dissection.
CVA risk factors� A-fib, hyperlipidemia
Awaiting neurology consult
Continue atorvastatin
Maintain permissive hypertension
Hydralazine as needed thereafter
#Unspecified A-fib
Patient was taken off of anticoagulation after diagnosed with GIST tumor/due to bleeding issues
Will take opinion from cardiology for Watchman device placement after neurology evaluation
#Mild hyperkalemia
Resolved
Monitor BMP
#GIST tumor
Status post chemotherapy
Patient reports side effects with chemotherapy after 45 days, plan on going further with radiation
No current hematemesis
Continue pantoprazole
Continue ondansetron as needed
#CKD stage IIIb
Creatinine at baseline 1.5
Monitor BMP
#Chronic anemia
At baseline 10.1
Monitor CBC
#Hyperlipidemia
Continue atorvastatin
LDL less than 40
DVT prophylaxis
SCDs
DNR
Anticipated Discharge: Within 24 hours
Subjective/Interval History
-
Date of Service: January 15, 2024
Patient reports that his speech is normal at baseline. Headache has improved.
Objective Data
-
Vital Signs:
Vital Signs
Temp Pulse Resp BP Pulse Ox
97.4 F 71 18 153/81 98
01/15/24 08:27 01/15/24 08:27 01/15/24 08:27 01/15/24 08:27 01/15/24 08:27
I&O
01/14/24 01/15/24 01/16/24
06:59 06:59 06:59
Intake Total 480 / 480
Output Total 450 / 450
Balance 30 / 30
Review of Systems
-
All other systems: Reviewed and negative (As per HPI)
Physical Exam
-
General: No Apparent Distress
HEENT: Normocephalic and Atraumatic
Respiratory: Clear to Auscultation
Cardiac: S1/S2 and Irregular Rhythm
GI: Soft, Nontender, Nondistended and Normal Bowel Sounds
Skin: Warm and Dry
Neuro: Awake, Alert, Oriented, AO x 3, Nonfocal/Grossly Intact, No Sensory Deficits, DTR's Intact & Symmetrica and Other (Cranial nerves II to XII grossly intact, gait normal, motor strength bilateral upper and lower extremities-5 / 5); Negative
Facial Droop
Psych: Calm
--- NOTE | 2024-01-15 11:15 | PTCARENOTE ---
Pt is off the floor for MRI at this time.
--- NOTE | 2024-01-15 15:16 | W.PN.UPDATE ---
Update Note
Progress Note Update
Seen and examined by me independently in collaboration with the medical officer.
Lab data and imaging data reviewed.
Addendum as below :
Patient presents with transient aphasia seems to be more expressive. Now completely resolved. No other associated symptoms other than headache which also has resolved. MRI of the brain shows no evidence of acute stroke. MRA of the head and neck
shows no evidence of occlusions. LDL 40. Patient does have a history of atrial fibrillation-seems paroxysmal. Currently in sinus rhythm. He was taken off anticoagulation because of new diagnosis of GIST tumor and GI bleeding. He is not
comfortable to go back on it. Will consult with neurology and if no other etiology suspected we will explore the possibilities of Watchman device with cardiology.
--- NOTE | 2024-01-15 15:21 | CM ---
Patient seen at bedside with physician. Patient stated that he lives with his and daughter provides supports. Patient stated that he drives and is independent of ADL's and IADL's. Patient reviewed OBS/WALKER form and signed form placed on chart.
Patient home is a split level with many steps. Patient uses a cane and PCP is Dr. Scott. Patient uses [facility] in [place] and his was recently in [place] and currently has [facility]. Patient would like [facility] if needed. Patient
appeared to get confused about where he was at one point but was easily redirected. CM will continue to follow for discharge planning needs.
Plan; home with VN vs SNF; pending medical treatment plan and PT/OT assessment
[2024-01-15] MEDS: LIPITOR 10 MG PO (17:56)
[2024-01-15] MEDS: VITAMIN D3 (cholecalciferol) 25 MCG PO (17:56)
[2024-01-15] MEDS: METAMUCIL, KONSYL 1 PACKET PO (17:56)
--- NOTE | 2024-01-15 20:20 | CON.NEURO4 ---
Consultation - Neurology 4
-
CONSULTING PHYSICIAN: Parish Cabrera MD (Neurology)
REFERRING PHYSICIAN: Hospitalist
DICTATED BY: Parish Cabrera MD
DATE/TIME OF REQUEST: 01/14/2024
DATE/TIME OF CONSULTATION: 01/15/2024 1030
Reason for Consultation: Speech impediment
History of Present Illness:
This is a 88 year old right) handed (male who has presented to the hospital with (chief complaint) of difficulty speaking. 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
anemia, thrombocytosis, history of DVT, unspecified A-fib not on anticoagulation who had been on antiplatelet that had been stopped. He had been in his USOH till Tuesday when he suddenly had difficulty taking and word finding issues with confusion
yesterday. The patient states that he feels he cannot express his thoughts. And its difficult to understand exactly what he is trying to describe. Patient states he is frustrated that he cannot communicate what he wants to very well. The
patient's son states this is new for him.
He came in to the ER on Tuesday and speech was improving.
At the time of my exam pat was asymptomatic. He had no speech, cranial nerve motor or sensory deficits
Patient denies pain.. He denies weakness and numbness in his extremities. No fevers. No neck pain. No vomiting. No abdominal pain. No chest pain. Patient does have a history of atrial fibrillation.
Pat is a limited historian
Past Medical History: HTN CAD GIST
Surgical History: None
Family History: None
Social History: Lives at home with his son
Allergies: NKA
Home Medications: See addendum
Review of Symptoms:
Patient denies any fever, headache, chest pain, shortness of breath, GI or symptoms.
�Per the HPI.�All systems are reviewed negative except above.
�-
Vital Signs:
The patient has a .Temp 36.6 C Pulse 83 Resp 16 BP 175/93 Pulse Ox 97
Physical Exam:
The patient is afebrile, heart sounds S1 and S2 are (regular / irregular), and chest is clear to auscultation bilaterally.
- If not clear, describe.
NIH Stroke Scale (if applicable):
I performed the NIH stroke scale on the patient . The patient scored ( 0 ) points on the NIHSS:
Neurologic Examination:
The patient is awake, alert and oriented x 3. (He able to follow commands and answer questions appropriately. There is no aphasia or dysarthria.
On cranial nerve assessment, pupils are 3 mm bilateral, round and reactive to light and accommodation. Visual sidhu are full. Extraocular movements are intact. Facial sensations are intact and bilaterally symmetrical, there is no facial asymmetry.
Hearing is intact bilaterally to normal conversation volume. Tongue palate and uvula are midline. Sternocleidomastoid strengths are full bilaterally.
Motor strengths are 5/5 bilateral upper and lower extremities on medical research [place] scale. There is no drift or involuntary movement noted.
Deep tendon reflexes are + bilateral upper and lower extremities and Babinski is absent bilaterally. Sensations of pain, touch, temperature and vibration are intact and bilaterally symmetrical. There was no extinction noted on double simultaneous
stimulation. Coordination is intact by finger to nose bilaterally.
Rombergs Negative. GAit Independent
Lab Results: Addendum
Neuro Imaging: CT/ MRI Head: Atrophy. Minimal Small vessel disease. Mild ventricular dilation
Impression:
(Mr. NICOLE TAVARES is a 88 year old M who has presented to the hospital with (symptoms/chief complaint).of aphasia
Differentials for the patient's presentation include:
1. TIA
Patient has the following risk factors for their symptoms: HTN, malignancy
Recommendations:
1. Cilostazol 100 mg BID
2. BP management
3. Statin
4. Speech therapy.
5. Echocardiogram
6. PT/OT
7. B12
Discussed patient care with: Hospitalist
Allergies
-
Allergies
Allergy/AdvReac Type Severity Reaction Status Date / Time
No Known Allergies Allergy Verified 01/14/24 09:41
Medications
-
Active Medications
Generic Name Dose Route Start Last Admin
Trade Name Freq PRN Reason Stop Dose Admin
Atorvastatin Calcium 10 mg 01/14/24 18:00 01/15/24 17:56
Atorvastatin (Lipitor) 10 Mg Tablet PO 02/11/24 17:59 10 mg
QPM RUDDY Administration
Cholecalciferol 25 mcg 01/14/24 18:00 01/15/24 17:56
Cholecalciferol (Vitamin D3) 25 Mcg Tablet (1,000 Units) PO 02/11/24 17:59 25 mcg
QPM RUDDY Administration
Cilostazol 100 mg 01/15/24 20:45
Cilostazol 100 Mg Tablet PO 02/12/24 20:44
BID RUDDY
Cyanocobalamin 500 mcg 01/15/24 08:00 01/15/24 08:13
Cyanocobalamin 1,000 Mcg Tablet PO 02/12/24 07:59 500 mcg
DAILY RUDDY Administration
Docusate Sodium 100 mg 01/15/24 08:00 01/15/24 08:12
Docusate Sodium 100 Mg Capsule PO 02/12/24 07:59 100 mg
DAILY RUDDY Administration
Folic Acid 1 mg 01/15/24 08:00 01/15/24 08:13
Folic Acid 1 Mg Tablet PO 02/12/24 07:59 1 mg
DAILY RUDDY Administration
Hydralazine HCl 5 mg 01/14/24 16:58
Hydralazine 20 Mg/Ml Vial IV 02/11/24 16:57
Q6HPRN PRN
SBP>180
Ondansetron HCl 8 mg 01/14/24 17:23
Ondansetron 4 Mg Tablet PO 02/11/24 17:22
TIDPRN PRN
nausea/vomiting
Pantoprazole Sodium 40 mg 01/14/24 20:00 01/15/24 08:13
Pantoprazole 40 Mg Delayed Release Tablet PO 02/11/24 19:59 40 mg
BID RUDDY Administration
Psyllium Hydrophilic Mucilloid 1 packet 01/14/24 18:00 01/15/24 17:56
Psyllium Packet PO 02/11/24 17:59 1 packet
QPM RUDDY Administration
Sodium Chloride 0 flush 01/14/24 18:00
Sodium Chloride 0.9% (Flush) Syringe IV 02/11/24 17:59
PER PROTOCOL RUDDY
Home Medications
�Medication �Instructions �Recorded
methylcellulose (laxative) 500 mg 500 mg PO QPM Constipation 05/24/18
tablet (Fiber Therapy
(methylcellulose))
docusate sodium 100 mg capsule 100 mg PO DAILY Constipation 01/15/21
cyanocobalamin (vitamin B-12) 500 500 mcg PO DAILY Supplement 04/14/23
mcg tablet (Vitamin B-12)
pantoprazole 40 mg tablet,delayed 40 mg PO BID Gastrointestinal Issue 07/08/23
release
folic acid 1 mg tablet 1 mg PO DAILY #30 tabs 07/11/23
atorvastatin 10 mg tablet 10 mg PO QPM High Cholesterol 01/14/24
cholecalciferol (vitamin D3) 25 25 mcg PO QPM Supplement 01/14/24
mcg (1,000 unit) tablet
ondansetron HCl 8 mg tablet 8 mg PO TIDPRN PRN nausea/vomiting 01/14/24
Vital Signs and Labs
-
Vital Signs and Labs:
Vital Signs
Temp Pulse Resp BP Pulse Ox
36.6 C 83 16 175/93 97
01/15/24 19:20 01/15/24 19:20 01/15/24 19:20 01/15/24 19:20 01/15/24 19:20
Lab Results
01/14/24 09:52
01/14/24 09:52
Sodium 137 mmol/L (135-145) 01/14/24 09:52
Potassium 5.2 mmol/L (3.5-5.1) H 01/14/24 09:52
BUN 20 mg/dl (9-20) 01/14/24 09:52
Glucose 99 mg/dl (70-99) 01/14/24 09:52
Calcium 9.2 mg/dl (8.4-10.2) 01/14/24 09:52
LDL Cholesterol, Calc 40 mg/dl 01/15/24 07:59
[2024-01-15] MEDS: PLETAL 100 MG PO (20:54)
[2024-01-15] MEDS: LOPRESSOR 12.5 MG PO (20:59)
[2024-01-16] VITALS (8 sets, daily range): BP systolic 81–157; BP diastolic 47–97; PULSE 74; O2SAT 97; BMI 20.9
--- NOTE | 2024-01-16 07:22 | W.PN.HOSP.TC ---
Addendum entered and electronically signed by Leeann Rios MD 01/16/24 18:06:
I saw and evaluated the patient independently. I reviewed the resident�s note and agree with findings and plan as documented by Dr. Evans.
GENERAL: well developed, well nourished, male in no apparent distress
HEENT: NC/AT
HEART: irreg irreg
LUNGS : clear to auscultation bilaterally
ABDOM: soft, mildly tender to midepigastric area, nondistended, + bowel sounds
EXT: no cyanosis, clubbing, or edema
NEUROLOGIC: grossly intact
TIA--Presented with expressive aphasia and headache--all resolved--w/u negative (head CT, MRI, MRA all without acute abnormalities)--apprec neuro--cont statin
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
dysfunction
hyperkalemia--Resolved
GIST tumor--Status post chemotherapy--Patient reported side effects with chemotherapy after 45 days, plan on going further with radiation--Continue pantoprazole--Continue ondansetron as needed
CKD stage IIIb--Creatinine at baseline 1.5
anemia of chronic disease--HGB at baseline
HLD -- cont atorvastatin--LDL less than 40
DVT prophylaxis--SCDs
Code status --DNR
d/c home with VN
Original Note:
Today's Communication/Plan
-
The patient was seen in his bed. it is planning for the patient to be discharged to crisis home or home care.
Assessment / Plan
Assessment / Plan
Assessment and Plan
Impression
88-year-old male with past medical history significant for GIST tumor s/p chemotherapy (non tolerated), GI bleeding, CKD stage IIIb, chronic anemia, A-fib not anticoagulated presented with expressive aphasia and headache to ER [address] scan
showed no evidence of ischemic or hemorrhagic stroke. His aphasia resolved.
Assessment
TIA
Unspecified A-fib
Mild hyperkalemia
GIST tumor
CKD stage IIIb
Chronic anemia
Hyperlipidemia
Plan
#TIA
Presentation with expressive aphasia and headache
Speech back to baseline since yesterday
No focal neurological deficits, no pronator drift
Received aspirin loading dose in the ER. His aspirin was stopped in the past due GI bleeding.
CT head�no evidence of ischemic/hemorrhagic stroke
MRI brain-01/15/2024�no evidence of acute intracranial abnormality
MR angiography of the intracranial circulation is within normal limits.
MRA neck 01/15/2024�No significant narrowing involving the common carotid arteries, carotid bulbs, or proximal internal carotid arteries bilaterally. No significant narrowing of the cervical internal carotid arteries bilaterally.
Normal appearance of the vertebral and basilar arteries with no evidence for narrowing or dissection.
Neurology consult with recommendations:
1. Cilostazol 100 mg BID; was ordered o as discharge medication
2. BP management
3. Statin
4. Speech therapy.
5. Echocardiogram
6. PT/OT
7. B12
HL:Continue atorvastatin
HTN:Maintain permissive hypertension- Hydralazine as needed thereafter
#Unspecified A-fib
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 He was given aspirin loading dose at ER due TIA.
The patient was recommended to see a licensed psychiatric technician for follow up to be assessed for Watchman device placement.
#Mild hyperkalemia
Potassium level is 5.2. He will have a follow up visit with his PCP and can have BMP check.
#GIST tumor
Status post chemotherapy
Patient reports side effects with chemotherapy after 45 days, plan on going further with radiation
No current hematemesis
Continue pantoprazole
Continue ondansetron as needed
#CKD stage IIIb
Creatinine at baseline 1.5
Monitor BMP with PCP
#Chronic anemia
hgb level baseline~7.5-8.5 Current hgb on 01/13 10.1
Monitor CBC with PCP
#Hyperlipidemia
Continue atorvastatin
LDL less than 40
DVT prophylaxis
SCDs
DNR
Anticipated Discharge: 24 - 48 hours
Subjective/Interval History
-
Date of Service: January 16, 2024
Patient reported some headache and neck pain which he has been suffering it for a long time. He reported he was taking Tylenol for it which was ordered for the patient.
Objective Data
-
Vital Signs:
Vital Signs
Temp Pulse Resp BP Pulse Ox
98.8 F 75 16 148/93 95
01/16/24 02:46 01/16/24 02:46 01/16/24 02:46 01/16/24 02:46 01/16/24 02:46
I&O
01/15/24 01/16/24 01/17/24
06:59 06:59 06:59
Intake Total 480 / 480 720 / 720
Output Total 450 / 450 825 / 825
Balance 30 / 30 -105 / -105
Review of Systems
-
Respiratory: Reports No Symptoms
Cardiac: Reports No Symptoms
Abdomen/GI: Reports No Symptoms
Genitourinary: Reports No Symptoms
Skin: Reports No Symptoms
Neuro: Reports No Symptoms
Endocrine: Reports No Symptoms
Hematologic / Lymphatic: Reports No Symptoms
Physical Exam
-
HEENT: Normocephalic
Respiratory: Clear to Auscultation
Cardiac: S1/S2 and Irregular Rhythm
GI: Soft and Tender (middle chronic tenderness Patient reports due his GI cancer. No rebound or guarding )
Skin: Warm and Dry
Neuro: Awake, Alert, Oriented, AO x 3, No Motor Deficits, Nonfocal/Grossly Intact, No Sensory Deficits, DTR's Intact & Symmetrica and Other (Bilateral upper and lower extremities motor strength -5 / 5)
Psych: Calm
[2024-01-16] MEDS: COLACE 100 MG PO (08:50)
[2024-01-16] MEDS: VITAMIN B-12 500 MCG PO (08:50)
[2024-01-16] MEDS: FOLVITE 1 MG PO (08:50)
[2024-01-16] MEDS: PLETAL 100 MG PO ×2 (08:51→20:11)
[2024-01-16] MEDS: PROTONIX 40 MG PO ×2 (08:51→20:11)
[2024-01-16] MEDS: LOPRESSOR 12.5 MG PO ×2 (08:51→20:11)
[2024-01-16] MEDS: FLUSH (NSS) 1 FLUSH IV (08:52)
[2024-01-16] MEDS: TYLENOL 650 MG PO (08:52)
--- NOTE | 2024-01-16 13:50 | CM ---
Addendum entered by Sharmila Mendoza 01/16/24 16:22:
Plan: home with [facility]

Original Note:
Patient admitted under observation status.
PT recommending home with therapy vs skilled.
Patient does not want to pay for skilled rehab, agreeable to home with VN.
Patient requested [facility]. referral via [facility].
Plan: home with [facility]
--- NOTE | 2024-01-16 14:02 | PTOTSP ---
SPEECH THERAPY SWALLOW EVALUATION:
Patient exhibits grossly functional oropharyngeal swallow at this time. No history of dysphagia noted. Patient breathing comfortably on room air. Recommend continue Regular texture solids, thin liquids. Medications whole with liquid as best
tolerated. General aspiration precautions. Skilled ST services for swallow therapy are not indicated at this time. Discussed with patient consideration of ENT consult regarding voice changes, though patient declined at this time given GIST tumor and
overall prognosis.
Patient exhibits mild-moderately impaired cognitive communication skills characterized by deficits in STM, attention, and processing speed. Patient endorsed STM impairments at baseline, which appears to be current level of functioning. MRI currently
negative for acute intracranial abnormality. Complaints that initially brought patient to hospital (word finding difficulties, confusion) appear to have resolved. Patient appears to be at baseline level of functioning. Skilled ST services for
speech/language/cognitive communication are not indicated at this time.
ST to sign off.
RECOMMEND:
1) Regular texture diet, thin liquids
2) Medications whole with liquid as best tolerated
3) General aspiration precautions
4) No skilled ST services are indicated at this time; ST to sign off
[2024-01-16 15:16] LABS: Vitamin B12 941 pg/ml (239-931)
--- NOTE | 2024-01-16 16:41 | PTCARENOTE ---
Pt AAO x3, STARKEY; OOB to chair/ambulates in room with assist x1/walker, ambulated in [place] with PT/walker earlier in shift, mo well; occ c/o feeling slightly dizzy w/OOb activity. NIHSS 0. Fall prec maintained. VSS. Telemetry:NSR. On room air-
pulse ox 97%, no SOB noted. Abd soft, mo PO well. Voidinf in urinal small amts without difficulty. Resting in chair at present, no c/o. Will continue to monitor.
[2024-01-16] MEDS: VITAMIN D3 (cholecalciferol) 25 MCG PO (17:09)
[2024-01-16] MEDS: LIPITOR 10 MG PO (17:09)
[2024-01-16] MEDS: METAMUCIL, KONSYL 1 PACKET PO (17:10)
[2024-01-17 03:33] VITALS: BP 143/82
[2024-01-17 05:28] VITALS: BMI 20.7
[2024-01-17 07:30] VITALS: BP 132/75
[2024-01-17] MEDS: LOPRESSOR 12.5 MG PO (08:59)
[2024-01-17] MEDS: PLETAL 100 MG PO (09:00)
[2024-01-17] MEDS: PROTONIX 40 MG PO (09:00)
[2024-01-17] MEDS: VITAMIN B-12 500 MCG PO (09:00)
[2024-01-17] MEDS: COLACE 100 MG PO (09:01)
[2024-01-17] MEDS: FLUSH (NSS) 1 FLUSH IV (09:01)
[2024-01-17] MEDS: FOLVITE 1 MG PO (09:01)
[2024-01-17] MEDS: TYLENOL 650 MG PO (09:04)
[2024-01-17 11:40] VITALS: BP 128/86
--- NOTE | 2024-01-17 14:19 | W.DCSUMMARY ---
Addendum entered and electronically signed by Leeann Rios MD 01/17/24 17:01:
The actual discharge date is 01/17/24. No other changes.
Addendum entered and electronically signed by Yoana Evans MD, Resident 01/17/24 14:19:
The patient is planning to be discharged to home with home care today.
Principal Discharge diagnosis : Transient Ischemic attack with aphasia
Chronic Discharge diagnosis :Unspecified atrial fibrillation, mild hyperkalemia, GIST stomach tumor, chronic kidney disease stage IIIb, anemia of chronic disease, hyperlipidemia
Hospital Course :The patient is a 88 year old male presented to ER complaining from confusion and aphasia. He had further studies and was diagnosed with Transient Ischemic attack by neurology. He was given only aspirin as anticoagulant due having
history of a GIST related bleeding. Neurology recommended to start on Cilostazol 100 mg BID.
Problem #1:CVA:
Problem #2: A-fib: The patient has a PMH of A-fibrillation and is no any longer any anti-coagulation medication, having a cardiology follow up was recommended. A watchman device can be considered by the control cabinet assembler if needed. A medical follow up
visit was recommended with his PCP and control cabinet assembler.
Problem #3: All other medical issues. Unspecified A-fib, GIST tumor, CKD stage IIIb, Chronic anemia, Hyperlipidemia These medical issues were stable during his hospitalization. Medications were continued as able
Patient is stable for discharge home with home care. If there are any questions regarding this dictation or his hospital stay, please not hesitate to call. Our office number is [phone].
Important imaging findings :
CT head showed: no evidence of ischemic/hemorrhagic stroke.
MRI brain showed 01/15/2024:no evidence of acute intracranial abnormality. MR angiography showed:intracranial circulation is within normal limits.
MRA neck showed: No significant narrowing involving the common carotid arteries, carotid bulbs, or proximal internal carotid arteries bilaterally. No significant narrowing of the cervical internal carotid arteries bilaterally.
Addendum entered and electronically signed by Leeann Rios MD 01/16/24 18:10:
Read, reviewed, and agree. See same day progress note for additional details. Time spent coordinating care, DC planning, review of DC plan of care with resident, transition of care, review of records in EMR, med rec, consults, notes, d/w
consultants, nursing, family, and CM=28 minutes.
Patient was evaluated by physical therapy and Occupational Therapy as well as speech. It appears that he is at baseline from a speech standpoint and will not require skilled speech services. Initially, plan was for him to go to a halfway
facility but unfortunately he was unable to do so due to observation status. He has been discharged home with visiting nurses and outpatient therapy. He has been accepted to [facility].
Original Note:
Discharge Summary
Discharge Data
Date of Admission: 01/14/24
Date of Discharge: 01/16/24
-
Pending Results: No
Hospital Course
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
history of DVT, unspecified A-fib not on anticoagulation who had been on antiplatelet that had been stopped. He had further studies after admission to address his current complaining. CT head showed: no evidence of ischemic/hemorrhagic stroke. MRI
brain showed 01/15/2024:no evidence of acute intracranial abnormality. MR angiography showed:intracranial circulation is within normal limits.
MRA neck showed: No significant narrowing involving the common carotid arteries, carotid bulbs, or proximal internal carotid arteries bilaterally. No significant narrowing of the cervical internal carotid arteries bilaterally. The patient has a PMH
of A-fibrillation and is no any longer any anti-coagulation medication, having a cardiology follow up was recommended. A watchman device can be considered by the control cabinet assembler if needed.
Discharge Plan
-
Patient Disposition: Home with Home Care
Discharge Diagnosis/Procedures: TIA, unspecified atrial fibrillation, mild hyperkalemia, GIST stomach tumor, chronic kidney disease stage IIIb, anemia of chronic disease, hyperlipidemia
Condition: Good
Diet: As tolerated and Regular
Additional Diets: Regular texture solids, thin liquids
Activity: As tolerated
Driving Restrictions: Not until seen by your Dr
Bathing Restrictions: None
Other Services: VN, PT and OT
Referrals:
Ritesh Anand MD [Active] - in two weeks (or usual control cabinet assembler to discuss watchman device)
Roland Scott MD [Family Provider] - in less than 1 week
Prescriptions:
New
cilostazol 100 mg Tablet
100 mg PO BID 30 Days Qty: 60 0RF
Continued
Fiber Therapy (m-cellulose) 500 MG tablet
500 mg PO QPM
docusate sodium 100 MG capsule
100 mg PO DAILY
cyanocobalamin (vitamin B-12) [Vitamin B-12] 500 mcg Tablet
500 mcg PO DAILY
pantoprazole 40 MG tablet,delayed release (DR/EC)
40 mg PO BID
folic acid 1 mg Tablet
1 mg PO DAILY Qty: 30 0RF
atorvastatin 10 mg tablet
10 mg PO QPM
ondansetron HCl 8 mg tablet
8 mg PO TIDPRN PRN (Reason: nausea/vomiting)
cholecalciferol (vitamin D3) 25 mcg (1,000 unit) Tablet
25 mcg PO QPM
Discharge Date and Time
Print Language: CAMEROONIAN
--- NOTE | 2024-01-17 14:23 | CM ---
Patient seen at bedside with physician and residents. Patient questioned why he was not able to go to SNF. Physician reviewed OBS status and cost of private pay. Patient also seen by therapy. Patient requested CM call and talk to his daughter in
lawHarini and CM spoke with her. Patient and have been talking about going to personal care; used to work at [employer] and Daughter in law was given information about a place for mom to assist. [facility] CM also spoke with jignesh and requested earliest possible assessment and delinquency prevention social worker to assist with assessments of patient needs. CM will continue to follow for discharge planning needs.
Plan; home with [facility] and assessment for personal care
[2024-01-17 15:24] VITALS: BP 106/64
== END 2024-01-17 16:32 | disposition home health service (06) ==
LOC: 4 EAST ACU 16:05
PROVIDERS: Student in an Organized Health Care Education/Training Program; ADMITTING PHYSICIAN Hospitalist; ATTENDING PHYSICIAN Internal Medicine; CONSULT PHYSICIAN Psychiatry & Neurology Neurology; EMERGENCY PHYSICIAN Emergency Medicine; FAMILY PHYSICIAN Family Medicine
DX: G45.9 Transient cerebral ischemic attack, unspecified (principal); R41.82 Altered mental status, unspecified; R47.01 Aphasia; I16.0 Hypertensive urgency; C49.A2 Gastrointestinal stromal tumor of stomach; I48.91 Unspecified atrial fibrillation; R47.9 Unspecified speech disturbances; R51.9 Headache, unspecified; I12.9 Hypertensive chronic kidney disease with stage 1 through stage 4 chronic kidney disease, or unspecified chronic kidney disease; I25.10 Atherosclerotic heart disease of native coronary artery without angina pectoris; E87.5 Hyperkalemia; N18.32 Chronic kidney disease, stage 3b; D63.8 Anemia in other chronic diseases classified elsewhere; I77.1 Stricture of artery; E78.5 Hyperlipidemia, unspecified; D75.839 Thrombocytosis, unspecified; Z86.718 Personal history of other venous thrombosis and embolism; Z92.3 Personal history of irradiation; Z92.21 Personal history of antineoplastic chemotherapy; Z66 Do not resuscitate
CPT/HCPCS: 70450; 70544; 70548; 70551; 80053; 80061; 81003; 82607; 83036; 85025; 92523; 92610; 93005; 97163; 97166; 99291; A9585; G0378